=== PATIENT | female | born 1995 | race Two or more races ===

== ENCOUNTER → 2021-11-03 09:12 | Outpatient (REF) | payer BC, SELFPAY ==
--- NOTE | 2021-11-03 09:19 | CA_ITS ---
Transthoracic Echocardiogram Amended Patient (Last, First, Middle): Ellen Haq, Gender: Female Date of : 1995 Age: 26 Procedure Date: 11/03/2021 Procedure Type: Transthoracic Echocardiogram Location: OP Height: 157.48 cm Weight: 59.88 kg BSA: 1.60 m2 Heart Rate: bpm BP: 118 / 60 mmHg Multi Share Program Coordinator: JODI Referring MD: Esther Walker NP Net Technical Architect: Meir Vera MD Symptoms: R55 SYNCOPE COLLAPSE Study Quality: Excellent ECG Rhythm: Sinus Conclusions: - Normal study Findings Left Ventricle Normal left ventricular size, thickness, and systolic function. The visually estimated ejection fraction is between 60-65%. Diastolic function is normal for age. Right Ventricle Normal right ventricular cavity size and systolic function. Atria Both atria are normal in size. There is no evidence of interatrial shunt. Aortic Valve Normal aortic valve structure and function. There is no aortic valve stenosis. There is no aortic valve regurgitation. Mitral Valve Normal mitral valve structure and function. There is trace mitral valve regurgitation. There is no mitral valve stenosis. Pulmonic Valve The pulmonic valve is likely normal. There is trace pulmonic valve regurgitation. Tricuspid Valve Normal tricuspid valve structure. There is no tricuspid valve regurgitation. Tricuspid regurgitation envelope is inadequate for calculation of right ventricular systolic pressure. Great Vessels All visible segments of the aorta are normal in size. The pulmonary artery was not well visualized. Venous The inferior vena cava is normal in size and collapses greater than 50% with inspiration. Pericardium/Pleural There is no evidence of pericardial effusion. Prior Study Comparison No prior study available for comparison. Measurements 2D Linear Measurements IVSd: 0.78 0.6-0.9/0.6-1.0 cm LVIDd: 4.76 3.9-5.3/4.2-5.9 cm LVIDd Index: 2.98 2.4-3.2/2.2-3.1 cm/m2 LVIDs: 3.14 2.0-3.6 cm LVPWd: 0.80 0.7-1.1 cm Ao Root: 2.80 2.1-3.5 cm LA Diam: 2.80 2.7-3.8/3.0-4.0 cm LAIDs Index: 1.75 1.5-2.3 cm/m2 LV Mass: 152.62 67-162/88-224 g LV Mass Index: 95.39 43-95/49-115 g/m2 LVOT Diam: 2.20 3.0+(-)1.3 cm 2D Volumes LA Vol: 16.90 2D Systolic Function EF 4C: 59.30 >55% EF 2C: 52.40 >55% Mitral Valve MV Pk E: 0.75 MV PK A: 0.58 MV Decel Time: 135.00 E/A: 1.30 E'Lateral: 16.30 E'Medial: 9.90 E/E' Med: 7.60 E/E' Lat: 4.60 PHT: 40.00 MVA PHT: 5.50 Decel Mcculloch: 5.58 Aortic Valve AoV Pk Dustin: 1.23 AoV Mn Dustin: 0.84 AoV VTI: 0.27 AoV Pk Grad: 6.00 Aov Mn Grad: 3.00 EARL Cont.VTI: 2.70 LVOT LVOT Pk Dustin: 0.94 LVOT Mn Dustin: 0.64 LVOT VTI: 0.19 LVOT Pk Grad: 4.00 LVOT Mn Grad: 2.00 LVOT Diam: 2.20 LVOT Area: 3.80 Diastolic Function MV Pk E: 0.75 MV Pk A: 0.58 E/A: 1.30 E'Medial: 9.90 E/E' Med: 7.60 E' Laterial: 16.30 E/E' Lat: 4.60 Right Ventricle TAPSE (mm): 24.00 TVS' Dustin: 13.00 Tricuspid Valve TR Pk Dustin: 1.83 TR Pk Grad: 13.00 Great Vessels Aorta Ao Root-2D: 2.80 2.0-3.7 cm Ao Asc: 2.70 2.1-3.4 cm Pulmonary Valve PV Pk Dustin: 1.03 Peak PV Grad: 4.00 Updated in Other Vendor System with Status of Final Meir Vera MD electronically signed on 11/05/2021 8:40:43 AM with status of Final
== END ==
LOC: HO.CARD 09:12
PROVIDERS: Visit Provider Nurse Practitioner Family
DX: R55 Syncope and collapse (principal)
CPT/HCPCS: 93306

== ENCOUNTER 2024-01-01 07:24 | Outpatient (AMB) | payer OTHER, SELFPAY ==
[2024-01-01 07:34] VITALS: BP 112/70; PULSE 80; O2SAT 99; BMI 23.6
--- NOTE | 2024-01-01 07:34 | A.OFFPC_ITS ---
Vital Signs 01/01/24 07:34 Height 5 ft 2 in Weight 129 lb BMI 23.6 BP 112/70 Blood Pressure Location Lt brachial Position Sitting Pulse 80 Pulse Source Pulse Oximeter Pulse Oximetry (%) 99 Oxygen Delivery Method Room Air Intake Visit Reasons: Annual physical- NEEDS PHQ9 Labor Supervisor Required: No Accompanied by: Self / Same As Patient Allergies ciprofloxacin [From Cipro] Allergy (Severe, Verified 01/01/24 07:55) Joint Pain Sulfa (Sulfonamide Antibiotics) Allergy (Severe, Verified 01/01/24 07:55) Hives lorazepam [From Ativan] Adverse Reaction (Severe, Verified 01/01/24 07:55) Uncomfortable Medication List - Last Reconciled 01/01/24 by Brooklyn Milner MD No Known Home Meds Tobacco use date assessed: 01/01/24 Dental Screening Dental Screen Date: 01/01/24 Did you have a dental visit in the last 12 months?: No Did you have a dental problem in the last 6 months where you did not have access to dental care?: No Was dental information given to patient?: No HPI HPI Comments History of Present Illness Details 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 She also has goiter and thyroid function test will be order as well as ultrasound of the thyroid. She will be referred to rheumatology due to her Dai-Danlos. She wants her hormones to get checked due to PCOS and I will refer her to Endocrinology for that matter. She has a cervical lymphadenopathy in the right upper side that has been present for 2 years and saw ENT confirming that she has a swollen lymph node but she is very afraid that she has cancer. I reassured her but still not enough therefore I will send her to Hematology-Oncology and order labs. Will be referred to physical therapy for her shoulder. She does have full active range of motion. [facility] Medical History (Updated 01/01/24 @ 08:22 by Brooklyn Milner MD) Dai-Danlos syndrome Surgical History History of adenoidectomy [place] teeth extracted History of appendectomy Family History Mother Dai-Danlos syndrome Mental health disorder Father No problems noted. Brother No problems noted. 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 1. Little interest or pleasure in doing things: not at all 2. Feeling down, depressed, or hopeless: not at all 3. Trouble falling or staying asleep, or sleeping too much: not at all 4. Feeling tired or having little energy: not at all 5. Poor appetite or overeating: not at all 6. Feeling bad about yourself - or that you are a failure or have let yourself or your family down: not at all 7. Trouble concentrating on things, such as reading the newspaper or watching television: not at all 8. Moving or speaking so slowly that other people could have noticed. Or the opposite - being so fidgety or restless that you have been moving around a lot more than usual: not at all 9. Thoughts that you would be better off or of hurting yourself in some way: not at all Total score: 0 Depression Screening Interpretation: Negative Depression Screening Done: Yes 25022 - PHQ-9 Billing: Yes Source: Developed by Drs. Josef Poole, Rere Gonzalez, Frankie Mazariegos and colleagues, with an educational palomo from [employer]. Thrive Questionnaire Date Thrive assessed: 01/01/24 I am a: Patient What is your living situation today?: I have a steady place to live Within the past 12 months, did the food you bought not last and you didn't have the money to get more?: Never true Within the past 12 months, did you worry whether your food would run out before you got money to buy more?: Never true Do you have trouble paying for medicines?: No Do you have trouble getting transportation to medical appointments?: No Do you have trouble paying your heating and electricity bill?: No Do you have trouble taking care of your child, family member or friend?: No Do you have trouble with day-to-day activities such as bathing, preparing meals, shopping, managing finances, etc.?: No Are you currently unemployed and looking for a job?: No Are you interested in more education?: No Currently or been in a relationship where the following occur: No concerns reported THRIVE Score: 0 AUDIT C Alcohol Use Questionnaire (AUDIT-C) 1. How often do you have a drink containing alcohol?: Never 3. How often do you have six or more drinks on one occasion?: Never Total Score: 0 Score Reviewed/Action Taken: No DILSHAD-7 AMB Questionnaire DILSHAD-7 Date DILSHAD - 7 assessed: 01/01/24 Feeling nervous, anxious, or on edge: 0 = Not at all Not being able to stop or control worryin = Not at all Worrying too much about different things: 0 = Not at all Trouble relaxin = Not at all Being so restless that it is hard to sit still: 0 = Not at all Becoming easily annoyed or irritable: 0 = Not at all Feeling afraid as if something awful might happen: 0 = Not at all Total DILSHAD-7 score (0-4 normal; 5-9 mild; 10-14 moderate; 15-21 severe): 0 Source: Developed by Drs. Josef Poole, Rere Gonzalez, Frankie Mazariegos and colleagues, with an educational palomo from [employer]. DILSHAD-7 Assessment Billing DILSHAD-7 Assessment Tool: DILSHAD-7 Assessment 04029 Review of Systems Const All systems reviewed & are unremarkable except as noted in HPI and below Resp Denies cough GI Denies abdominal pain, Denies change in bowel habits, Denies excessive flatus, Denies nausea and Denies vomiting Musc Reports arthralgias Physical exam (Primary Care) Vital Signs: Last Vital Signs Pulse 80 01/01/24 07:34 BP 112/70 01/01/24 07:34 Pulse Ox 99 01/01/24 07:34 Oxygen Delivery Method Room Air 01/01/24 07:34 BMI result Body Mass Index 23.6 Tobacco/Smoking Status: Tobacco use Status Tobacco use date assessed 01/01/24 01/01/24 07:47 Patient Tobacco Use Status Never used Tobacco 01/01/24 07:47 Tobacco use type Cigarette 01/01/24 07:47 e-Cigarette/Vaping Use Never Used 01/01/24 07:47 PHQ-9: PHQ-9 Score PHQ-9: Total score 0 01/01/24 07:47 Depression Screening Interpretation: Negative Thrive Assessment: Date of Thrive Assessment Date Thrive assessed 01/01/24 01/01/24 07:47 Currently or been in a relationship where the following occur: No concerns reported Neck Thyroid: diffusely enlarged Resp Effort & Inspection: normal respiratory effort Auscultation: clear to auscultation bilaterally Cardio Jugular venous distension: no JVD Rate: regular rate Rhythm: regular rhythm Heart sounds: S1 normal heart sound present and S2 normal heart sound present Extrem General: Yes full ROM Assessment and Plan Assessment & Plan (1) PCOS (polycystic ovarian syndrome): Code(s): E28.2 - Polycystic ovarian syndrome Plan: Referred to Endocrinology. (2) Dai-Danlos syndrome: Code(s): Q79.60 - Dai-Danlos syndrome, unspecified Plan: Referred to rheumatology. (3) Cervical lymphadenopathy: Code(s): R59.0 - Localized enlarged lymph nodes Plan: Referred to Hematology-Oncology. (4) Right shoulder pain: Code(s): M25.511 - Pain in right shoulder Qualifiers: Chronicity: chronic Qualified Code(s): M25.511 - Pain in right shoulder; G89.29 - Other chronic pain Plan: Referred to physical therapy. (5) Goiter: Code(s): E04.9 - Nontoxic goiter, unspecified Plan: Ultrasound of the thyroid ordered. Orders: Orders US thyroid Today E04.9 - Nontoxic goiter, unspecified Complete Blood Count Auto Diff Today R59.0 - Localized enlarged lymph nodes Thyroid Stimulating Hormone Today E04.9 - Nontoxic goiter, unspecified Free T4 (Free Thyroxine) Today E04.9 - Nontoxic goiter, unspecified Thyroid Peroxidase Antibodies Today E04.9 - Nontoxic goiter, unspecified Thyroglobulin Antibodies Today E04.9 - Nontoxic goiter, unspecified PT Evaluation and Treatment Today M25.511 - Pain in right shoulder Comprehensive Met. Panel Today R59.0 - Localized enlarged lymph nodes Referrals Hematology & Oncology Referral R59.0 - Localized enlarged lymph nodes Endocrinology Referral E28.2 - Polycystic ovarian syndrome Rheumatology Referral Q79.60 - Dai-Danlos syndrome, unspecified Coding Level of Care Code New Pt Level 4 (02245) Complex EM visit Add On G2211 Diagnoses PCOS (polycystic ovarian syndrome) E28.2 Dai-Danlos syndrome Q79.60 Cervical lymphadenopathy R59.0 Chronic right shoulder pain M25.511; G89.29 Chronicity: chronic Goiter E04.9 Additional Codes DILSHAD-7 Assessment Billing - DILSHAD-7 Assessment Tool: DILSHAD-7 Assessment 39597 ([id number]) Time Spent (min) 20
== END 2024-01-01 08:15 | disposition home or self-care (01) ==
PROVIDERS: PCP Nurse Practitioner Family; Visit Provider Internal Medicine
DX: E28.2 Polycystic ovarian syndrome (principal); Q79.60 Ehlers-Danlos syndrome, unspecified; R59.0 Localized enlarged lymph nodes; M25.511 Pain in right shoulder; G89.29 Other chronic pain; E04.9 Nontoxic goiter, unspecified
CPT/HCPCS: 99204; G2211

== ENCOUNTER 2024-01-08 11:18 | Outpatient (REF) | payer OTHER, SELFPAY ==
--- NOTE | ~2024-01-08 | US_ITS ---
EXAMINATION: US THYROID CLINICAL INFORMATION: Nontoxic goiter, unspecified. COMPARISON: None available. TECHNIQUE: Linear transducer grayscale and color Doppler examination with attention to the region of the thyroid. FINDINGS: SIZE: Measurements of the thyroid lobes and nodules are given in sagittal, anteroposterior and transverse dimensions respectively. Right Thyroid Lobe: 4.7 x 1.7 x 2.1 cm, volume 8.8 mL. Parenchyma: The gland echotexture is homogeneous. Thyroid vascularity is normal. Left Thyroid Lobe: 4.5 x 1.4 x 1.7 cm, volume 5.6 mL. Parenchyma: The gland echotexture is homogeneous. Thyroid vascularity is normal. Isthmus: 0.56 cm in maximum AP dimension. Estimated total number of nodules greater than or equal to 1 cm: 0. [employer] M[employer] Trim nodules are described as follows: 1. Location: Right inferior. Size: 0.5 x 0.3 x 0.3 cm, volume 0.02 mL. Nodule characteristics: Composition: Cystic(0). ACR TI-RADS total points: 0. ACR TI-RADS category: 1. NODES: Right cervical nodes with echogenic elva and borderline cortical thickening measure 2.0 x 0.3 x 1.4 cm and 1.7 x 1.7 x 1.3 cm. US/US thyroid IMPRESSION: 1. A 0.5 cm right TR1 thyroid nodule. 2. Right cervical nodes with echogenic elva and borderline cortical thickening measure 2.0 x 0.3 x 1.4 cm and 1.7 x 1.7 x 1.3 cm. ACR TI-RADS RECOMMENDATION REFERENCE: Ultrasound-guided fine-needle aspiration, followup ultrasound, no further follow up. * TR1 (0 point) and TR2 (2 points): No FNA or follow up. * TR3 (3 points): FNA if more than or equal to 2.5 cm in maximum dimension, followup ultrasound in 1, 3 and 5 years if 1.5 to 2.4 cm in maximum dimension. * TR4 (4-6 points): FNA if more than or equal to 1.5 cm in maximum dimension, followup ultrasound in 1, 2, 3 and 5 years if 1 to 1.4 cm in maximum dimension. * TR5 (more than or equal to 7 points): FNA if more than or equal to 1 cm in maximum dimension, followup ultrasound every year for 5 years if 0.5 to 0.9 cm in maximum dimension. * TR3, TR4 or TR5 nodules that are below the size threshold for followup receive no follow up.
[2024-01-08 12:23] LABS: MANUAL DIFF FLAG NO
[2024-01-08 12:43] LABS: Basophils Absolute Auto 0.1 X10*3/uL (0.0-0.2); Basophils Percent Auto 0.8 % (0-2); Eosinophils Absolute Auto 0.3 X10*3/uL (0.0-0.4); Eosinophils Percent Auto 4.9 % (0-4); Hematocrit 39.2 % (37.0-47.0); Hemoglobin 13.1 g/dl (12.0-16.0); Imm Gran Abs Auto 0.01 X10*3/uL (0.00-0.03); Imm Gran Pct Auto 0.2 % (0.0-0.4); Lymphocytes Absolute Auto 2.2 X10*3/uL (1.2-4.9); Lymphocytes Percent Auto 35.4 % (20-40); Mean Corpuscular HGB Conc 33.4 g/dl (31.0-35.0); Mean Corpuscular Volume 89.7 fL (80.0-98.0); Mean Platelet Volume 10.5 fL (9.4-12.3); Monocytes Absolute Auto 0.4 X10*3/uL (0.1-1.2); Neutrophils Absolute Auto 3.3 x10*3/uL (2.0-8.3); Neutrophils Percent Auto 51.7 % (45-73); Platelet Count 230 X10*3/uL (160-400); Red Blood Count 4.37 X10*6/uL (4.20-5.50); Red Cell Distribution Width 12.6 % (11.0-16.0); White Blood Count 6.3 X10*3/uL (4.8-10.8)
[2024-01-08 14:01] LABS: Alanine Aminotransferase 9 U/L (0-31); Albumin Level 4.5 g/dL (3.5-5.0); Alkaline Phosphatase 81 U/L (39-117); Anion Gap 11 (12-20); Aspartate Amino Transferase 21 U/L (5-31); Bilirubin Total 0.2 mg/dL (0.0-1.0); Blood Urea Nitrogen 7 mg/dL (9-16); Calcium 9.5 mg/dL (8.4-10.2); Carbon Dioxide 24 mmol/L (22-29); Chloride 110 mmol/L (96-108); Estimated Glomerular Filt Rate > 60; Glucose Random 85 mg/dL (60-115); Potassium 4.6 mmol/L (3.3-5.1); Sodium 140 mmol/L (135-145); Total Protein 7.6 g/dL (6.5-8.0)
[2024-01-08 14:03] LABS: Free T4 (Free Thyroxine) 1.02 ng/dL (0.71-1.85); Thyroid Stimulating Hormone 1.22 uIU/mL (0.32-4.0)
[2024-01-09 10:44] LABS: Thyroglobulin Antibodies <1 IU/mL (< or = 1); Thyroid Peroxidase Antibodies 1 IU/mL (<9)
== END 2024-01-08 11:19 | disposition home or self-care (01) ==
LOC: HO.US 11:18
PROVIDERS: PCP Internal Medicine; Visit Provider Internal Medicine
DX: E04.9 Nontoxic goiter, unspecified (principal); R59.0 Localized enlarged lymph nodes
CPT/HCPCS: 36415; 76536; 80053; 84439; 84443; 85025; 86376; 86800

== ENCOUNTER 2024-02-04 12:59 | Outpatient (AMB) | payer OTHER, SELFPAY ==
[2024-02-04 13:00] VITALS: BP 98/68; PULSE 79; O2SAT 98; BMI 25.2
--- NOTE | 2024-02-04 13:00 | A.OFFPC_ITS ---
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 Required: No Accompanied by: Self / Same As Patient Allergies ciprofloxacin [From Cipro] Allergy (Severe, Verified 02/04/24 13:22) Joint Pain Sulfa (Sulfonamide Antibiotics) Allergy (Severe, Verified 02/04/24 13:22) Hives lorazepam [From Ativan] Adverse Reaction (Severe, Verified 02/04/24 13:22) Uncomfortable Medication List - Last Reconciled 02/04/24 by Brooklyn Milner MD fluticasone propionate 50 mcg/actuation 1 spray intranasal DAILY Tobacco use date assessed: 01/01/24 Dental Screening Dental Screen Date: 01/01/24 HPI HPI Comments History of Present Illness Details This is a 28-year-old female that comes today complaining of a headache that has been persistent for about 3 weeks. She even went to the emergency room for it. The headache started pain associated with nausea and vomiting but that resolved. No eye pain or photosensitivity. No neurological deficit. No unilateral weakness associated with it. Pressure like in quality. She also has cervical lymphadenopathy that is seen in the thyroid ultrasound and I did order antibiotics for her to try and repeat ultrasound in 3 months to see if it is still present. No fever or night sweats. She also complains pain in her right axillary area with no nipple discharge or retraction. No axillary or breast mass palpated. This has been present for few weeks. [facility] Medical History (Updated 02/04/24 @ 13:34 by Brooklyn Milner MD) Dai-Danlos syndrome Surgical History History of adenoidectomy [place] teeth extracted History of appendectomy Family History Mother Dai-Danlos syndrome Mental health disorder Father No problems noted. Brother No problems noted. 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 Current occupational exposures/hazards: No Cognitive needs: No Hearing needs: No Vision needs: Yes Questionnaire Thrive Questionnaire Date Thrive assessed: 01/01/24 I am a: Patient What is your living situation today?: I have a steady place to live Within the past 12 months, did the food you bought not last and you didn't have the money to get more?: Never true Within the past 12 months, did you worry whether your food would run out before you got money to buy more?: Never true Do you have trouble paying for medicines?: No Do you have trouble getting transportation to medical appointments?: No Do you have trouble paying your heating and electricity bill?: No Do you have trouble taking care of your child, family member or friend?: No Do you have trouble with day-to-day activities such as bathing, preparing meals, shopping, managing finances, etc.?: No Are you currently unemployed and looking for a job?: No Are you interested in more education?: No Currently or been in a relationship where the following occur: No concerns reported THRIVE Score: 0 AUDIT C Alcohol Use Questionnaire (AUDIT-C) 1. How often do you have a drink containing alcohol?: Never 3. How often do you have six or more drinks on one occasion?: Never Total Score: 0 Score Reviewed/Action Taken: No DILSHAD-7 AMB Questionnaire DILSHAD-7 Date DILSHAD - 7 assessed: 01/01/24 Source: Developed by Drs. Josef Poole, Rere Gonzalez, Frankie Mazariegos and colleagues, with an educational palomo from [employer]. Review of Systems Const All systems reviewed & are unremarkable except as noted in HPI and below Reports headache(s) ENT Reports headache(s) Card Denies chest pain at rest, Denies chest pain with activity, Denies edema, Denies irregular heart rhythm, Denies claudication, Denies dyspnea, Denies dyspnea on exertion, Denies orthopnea, Denies paroxysmal nocturnal dyspnea and Denies slow heart rate Resp Denies cough, Denies dyspnea and Denies dyspnea on exertion GI Denies abdominal pain, Denies change in bowel habits, Denies excessive flatus, Denies nausea and Denies vomiting Denies urinary incontinence, Denies urinary hesitancy and Denies urinary urgency Musc Denies atrophy, Denies deformity and Denies limited range of motion Neuro Reports headache(s) Physical exam (Primary Care) Vital Signs: Last Vital Signs Pulse 79 02/04/24 13:00 BP 98/68 02/04/24 13:00 Pulse Ox 98 02/04/24 13:00 Oxygen Delivery Method Room Air 02/04/24 13:00 BMI result Body Mass Index 25.2 Tobacco/Smoking Status: Tobacco use Status Tobacco use date assessed 01/01/24 02/04/24 13:01 Patient Tobacco Use Status Never used Tobacco 02/04/24 13:01 Tobacco use type Cigarette 02/04/24 13:01 e-Cigarette/Vaping Use Never Used 02/04/24 13:01 Thrive Assessment: Date of Thrive Assessment Date Thrive assessed 01/01/24 02/04/24 13:01 Currently or been in a relationship where the following occur: No concerns reported Const General: cooperative Neck Neck: Yes lymphadenopathy Chest Breast/axilla inspection: normal inspection of the axillae Breast/axilla palpation: abnormal palpation of the axilla (right axillary pain) Resp Effort & Inspection: normal respiratory effort Auscultation: clear to auscultation bilaterally Cardio Jugular venous distension: no JVD Rate: regular rate Rhythm: regular rhythm Heart sounds: S1 normal heart sound present and S2 normal heart sound present Extrem General: Yes full ROM Assessment and Plan Assessment & Plan (1) Pain in right axilla: Code(s): M79.621 - Pain in right upper arm Plan: Ultrasound and mammogram ordered. (2) Persistent headaches: Code(s): R51.9 - Headache, unspecified Plan: MRI of the brain ordered. Start sumatriptan as needed. (3) Cervical lymphadenopathy: Code(s): R59.0 - Localized enlarged lymph nodes Plan: Start antibiotic. Repeat ultrasound in 3 months. Orders: Orders MR head/brain wo con Today R51.9 - Headache, unspecified US breast RT complete Today M79.621 - Pain in right upper arm MM diagnostic mammo BI Today M79.621 - Pain in right upper arm Coding Level of Care Code Est Pt Level 3 (12888) Complex EM visit Add On G2211 Diagnoses Pain in right axilla M79.621 Persistent headaches R51.9 Cervical lymphadenopathy R59.0 Time Spent (min) 19
== END 2024-02-04 13:41 | disposition home or self-care (01) ==
PROVIDERS: PCP Internal Medicine; Visit Provider Internal Medicine
DX: M79.621 Pain in right upper arm (principal); R51.9 Headache, unspecified; R59.0 Localized enlarged lymph nodes
CPT/HCPCS: 99213; G2211

== ENCOUNTER 2024-02-05 10:55 | Outpatient (AMB) | payer OTHER, SELFPAY ==
[2024-02-05 11:10] VITALS: BP 110/66; PULSE 87; BMI 25.5
--- NOTE | 2024-02-05 11:10 | MHC.OFFVIS ---
Vital Signs 02/05/24 11:10 Height 5 ft 2 in Weight 139 lb 5.314 oz BMI 25.5 BP 110/66 Blood Pressure Location Lt brachial Position Sitting Pulse 87 Pulse Source Pulse Oximeter Intake Visit Reasons: PCOS-lvm Intake Note: New patient present today for PCOS. 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 She also expresses concern about her thyroid nodule. 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 Was previoulsy seeing an endo at [place] Dr. Michael, last seen 2018. She reports her testosterone levels were noted to be very elevated. On off OCP since 14 till age 25, stopped it because she was getting continuous bleeding for 7 weeks in the end when she was on control pills. Was offered ablation, IUD so didnt go for it. Has had numtiple US including transvaginal ones , no cystic overies seen Was on metformin 2019 to 2020, and spironolactone 12.5 mg she thinks didnt help with hirsutism and metformin was giving GI trouble so she stopped. She was still on OCP at this time. 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 Sexullay active with a cis-female, not on any contraceptives currently No history of pregnancies. Does get acne on the face and scalp, interesteded in seeing dermatology. She has not tried any treatments through her primary care physician. No hair loss. No history of HTN or HLD. But thinks she had impaired glucose readings, wasnt diagnosed with prediabetes. She has family history of mother: PCOS, enhler danlos, stroke, HTN Maternal grandmother : skin cancer, ovarian cancer, cervical cancer Maternal aunt(mother s cousin) breast cancer Medications:Currently none for PCOS Diet: mostly eats at home, no soda, but has smoothies and juices a lot, not a lot of fast food Exercise: walks 3 times a week for a mile or mile and half Weight Trend: fluctuating up and down between 15 lbs , currently she is on the higher end Medical therapies: OCP, spironolactone, metformin, incretin therapy Cosmetic therapies: Laser hair removal one treatment, shaving, threading, plucking Thyroid nodule Patient describes she has noted an enlarged thyroid for many years. She also has a lymph node for the past 2 years on the right side of her neck, she says this developed after her wisdom tooth surgery. Denies any symptoms of hypothyroidism or hyperthyroidism except fatigue. She also seems to have increased anxiety. No compressive symptoms. No family history of thyroid cancer but she does have family history of thyroid disease. Sister has Chrisitne's. Ultrasound January 2024 showed subcentimeter right-sided thyroid nodule cystic in appearance, TR 1. Normal thyroid function tests from January 2024. 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 Pulmonary: No SOB GI: Does report intermittent stomach problems : no burning micturition, dysuria or increase in urinary frequency Neurologic: Does have weakness in extremities from Dai-Danlos Physical exam General: sitting comfortably in no acute distress HEENT: normocephalic/atraumatic, noted to have hair growth on the chin Neck: supple, palpable enlarged thyroid as well as a right sided lymph node in the cervical region , no dorsocervical or supraclavicular fat pads Cardiac: normal heart sounds Pulm: normal breath sounds B/L, no added breath sounds Abd: not distended, no tenderness Extremities: no edema, no signs of myxedema Neuro: AAO x3, Speech: normal, no facial droop, moving all 4 extremities Skin: no rash PFSH Medical History (Updated 02/05/24 @ 12:47 by Sharon Grimes MD) Thyroid nodule Acne Dai-Danlos syndrome Surgical History History of adenoidectomy [place] teeth extracted History of appendectomy Family History Mother Dai-Danlos syndrome Mental health disorder Father No problems noted. Brother No problems noted. 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 Over all she has an enlarged thyroid. However this is homogeneous in appearance. CLINICAL INFORMATION: Nontoxic goiter, unspecified. COMPARISON: None available. TECHNIQUE: Linear transducer grayscale and color Doppler examination with attention to the region of the thyroid. FINDINGS: SIZE: Measurements of the thyroid lobes and nodules are given in sagittal, anteroposterior and transverse dimensions respectively. Right Thyroid Lobe: 4.7 x 1.7 x 2.1 cm, volume 8.8 mL. Parenchyma: The gland echotexture is homogeneous. Thyroid vascularity is normal. Left Thyroid Lobe: 4.5 x 1.4 x 1.7 cm, volume 5.6 mL. Parenchyma: The gland echotexture is homogeneous. Thyroid vascularity is normal. Isthmus: 0.56 cm in maximum AP dimension. Estimated total number of nodules greater than or equal to 1 cm: 0. Publicity Director nodules are described as follows: 1. Location: Right inferior. Size: 0.5 x 0.3 x 0.3 cm, volume 0.02 mL. Nodule characteristics: Composition: Cystic(0). ACR TI-RADS total points: 0. ACR TI-RADS category: 1. NODES: Right cervical nodes with echogenic elva and borderline cortical thickening measure 2.0 x 0.3 x 1.4 cm and 1.7 x 1.7 x 1.3 cm. US/US thyroid IMPRESSION: 1. A 0.5 cm right TR1 thyroid nodule. 2. Right cervical nodes with echogenic elva and borderline cortical thickening measure 2.0 x 0.3 x 1.4 cm and 1.7 x 1.7 x 1.3 cm. Assessment & Plan Assessment & Plan (1) PCOS (polycystic ovarian syndrome): Code(s): E28.2 - Polycystic ovarian syndrome Category: Medical Plan: Patient with diagnosis of polycystic ovarian syndrome, diagnosed on the basis of irregular menstruation, symptoms of hyperandrogenism and elevated testosterone levels per patient, who was previously on oral contraceptive pills for at least 10 years up until the age of 25, and has previously trialed metformin and spironolactone for hirsutism and also suffers from acne. Her menstruation is now regular, however she is still bothered by the hirsutism and acne. She is sexually active with cyst female, hence no chance of . I discussed with her that this is a good time to test her hormone levels given that she is off any treatments, so we will get an extended panel with reproductive hormones as well as rules out nonclassic CAH, adrenal tumors, ovarian tumors etc.. If her blood work is only consistent with PCOS, we reviewed the following,. I reviewed with the patient the implications of polycystic ovarian syndrome in terms of 1) reproductive health (increased risk of infertity, miscarriage), 2) metabolic issues (type 2 diabetes, hypertension, dyslipidemia, cardiovascular disease) and 3) hyperandrogenism (acne, hirsuitism, male pattern hair loss). We reviewed that weight loss in overweight woman can help improve these morbidities, but often woman with PCOS do need further assistance with fertility using metformin plus clomiphene or letrazole. She is not interested in fertility. We discussed importance of 150 minutes of aerobic exercise and a week as well as resistance training on 1-2 days of the week. We discussed importance of avoiding refined sugars, fatty foods. Also discussed apps such as my fitness pal and lose it to maintain calorie deficit as well as discussed portion control. She is not interested in giving another trial of spironolactone for hirsutism/acne. I I will refer her to dermatology for treatment of acne. I discussed importance of having a period at least every 3 months to prevent endometrial hyperplasia with risk of endometrial cancer. At this time her menses are regular so no need of menses inducing agents such as estrogen or progesterone. Plan: -ordered FSH, LH, estradiol, testosterone, DHEA-S, 17 hydroxy progesterone and androstenedione levels -we will also check lipid panel and A1c -lifestyle modification as discussed above -follow up in 4 weeks to discuss results (2) Thyroid nodule: Code(s): E04.1 - Nontoxic single thyroid nodule Category: Medical Plan: Patient with no personal history of head or neck radiation, with no family history of thyroid cancer, who has a right-sided subcentimeter cystic nodule category TR 1. I reviewed the images of the ultrasound myself. I explained that it is common to have thyroid nodules. About 95% of the time these nodules are benign. However if the nodule is > 1 cm in size or suspicious on ultrasound then a fine need aspiration biopsy is recommended. I discussed with her that at this time her nodule does not need any further intervention or follow up. Patient feels reassured. She does have an enlarged thyroid overall, however she has negative antibodies and had thyroid function testing is unremarkable. She also has right-sided cervical lymph nodes which are quite sizable up to 2 cm in size, that have persisted over the last 2 years per patient, would recommend seeing Ear Nose and Throat as she already has an appointment pending, for further evaluation of these. If this continues to persist, she might need a core biopsy to evaluate for lymphoma. Plan: -no follow up needed for the thyroid nodule -would recommend further evaluation of the right-sided cervical lymph nodes with follow up with ENT/core biopsy Plan I spent 60 minutes in reviewing the record, seeing the patient and documenting in the medical record. Orders: Orders 17 Hydroxyprogesterone Today E28.2 - Polycystic ovarian syndrome Androstenedione Today E28.2 - Polycystic ovarian syndrome Follicle Stimulating Hormone Today E28.2 - Polycystic ovarian syndrome Testosterone, Free/Total Today E28.2 - Polycystic ovarian syndrome Hemoglobin A1c Today E28.2 - Polycystic ovarian syndrome DHEA Sulfate Today E28.2 - Polycystic ovarian syndrome Lutenizing Hormone Today E28.2 - Polycystic ovarian syndrome Estradiol Ultra Sensitive Today E28.2 - Polycystic ovarian syndrome Basic Metabolic Panel Today E28.2 - Polycystic ovarian syndrome Lipid Panel Today E28.2 - Polycystic ovarian syndrome Referrals Dermatology Referral L70.9 - Acne, unspecified Coding Level of Care Code New Pt Level 5 (76879) Diagnoses PCOS (polycystic ovarian syndrome) E28.2 Thyroid nodule E04.1 Time Spent (min) 60
== END 2024-02-05 12:19 | disposition home or self-care (01) ==
PROVIDERS: PCP Internal Medicine; Visit Provider Student in an Organized Health Care Education/Training Program
DX: E28.2 Polycystic ovarian syndrome (principal); E04.1 Nontoxic single thyroid nodule
CPT/HCPCS: 99205

== ENCOUNTER → 2024-02-05 10:55 | Outpatient (BNVA) | payer OTHER, SELFPAY | PROVIDERS: PCP Internal Medicine; Visit Provider Student in an Organized Health Care Education/Training Program | DX: E28.2 Polycystic ovarian syndrome (principal); E04.1 Nontoxic single thyroid nodule | CPT/HCPCS: 99202 ==

== ENCOUNTER 2024-02-05 12:30 | Outpatient (REF) | payer OTHER, SELFPAY ==
[2024-02-05 13:28] LABS: Anion Gap 10 (12-20); Blood Urea Nitrogen 9 mg/dL (9-16); Calcium 9.4 mg/dL (8.4-10.2); Carbon Dioxide 27 mmol/L (22-29); Chloride 108 mmol/L (96-108); Cholesterol 185 mg/dL (<200); Estimated Glomerular Filt Rate > 60; Glucose Random 90 mg/dL (60-115); HDL Cholesterol 66 mg/dL (>40); LDL Cholesterol Calculated 104 mg/dL (<100); Potassium 3.8 mmol/L (3.3-5.1); Sodium 141 mmol/L (135-145); Triglycerides 77 mg/dL (<150)
[2024-02-05 13:31] LABS: Estimated Average Glucose 100 mg/dL; Hemoglobin A1c % 5.1 % (<6.0)
[2024-02-06 08:48] LABS: DHEA Sulfate 162 mcg/dL (14-349)
[2024-02-06 09:08] LABS: Follicle Stimulating Hormone 6.7 mIU/mL; Lutenizing Hormone 6.2 mIU/mL
[2024-02-09 17:33] LABS: Testosterone, Free 2.5 pg/mL (0.1-6.4); Testosterone, Total 38 ng/dL (2-45)
[2024-02-13 23:34] LABS: Estradiol Ultra Sensitive 88 pg/mL
[2024-02-14 23:23] LABS: Androstenedione 132 ng/dL
== END 2024-02-05 12:31 | disposition home or self-care (01) ==
LOC: HO.10HDL 12:30
PROVIDERS: Visit Provider Student in an Organized Health Care Education/Training Program
DX: E28.2 Polycystic ovarian syndrome (principal)
CPT/HCPCS: 36415; 80048; 80061; 82157; 82627; 82670; 83001; 83002; 83036; 83498; 84402; 84403

== ENCOUNTER 2024-02-25 12:55 | Outpatient (REF) | payer OTHER, SELFPAY ==
--- NOTE | ~2024-02-25 | US_ITS ---
EXAMINATION: US DIAGNOSTIC ULTRASOUND BREAST, 28-year-old female with palpable right axillary lump. CLINICAL INFORMATION: Palpable right axillary lump.. COMPARISON: None available. TECHNIQUE: Ultrasound of the breast is performed with real-time vilchis scale imaging and color Doppler. FINDINGS: Targeted color Doppler ultrasound thickening in the right axilla in the area of the patient's palpable lump demonstrates normal axillary tissue. There is no focal suspicious finding. There is no solid mass, architectural abnormality, duct ectasia, or edema in the soft tissue planes. Results are discussed with the patient at time of visit. US/US breast RT limited mamm only IMPRESSION: No sonographic abnormality to account for the patient's right axillary palpable lump. Recommend clinical evaluation and follow-up. ASSESSMENT: BI-RADS 1: Negative RECOMMENDATION: 1. Patient should be managed based on the clinical impression. Decision to proceed with further workup or biopsy should be based on clinical grounds and degree of clinical concern. 2. Age-appropriate screening mammography at age 40 recommended. This patient's information was entered into a reminder system with a target due date for their next mammogram. Electronically signed by: Marybeth Leigh DO 02/25/2024 01:48 PM EDT
== END 2024-02-25 12:56 | disposition home or self-care (01) ==
LOC: HO.MAMMO 12:55
PROVIDERS: PCP Internal Medicine; Visit Provider Internal Medicine
DX: N63.11 Unspecified lump in the right breast, upper outer quadrant (principal)
CPT/HCPCS: 76642

== ENCOUNTER → 2024-02-25 13:00 | Outpatient (BNV) | payer OTHER, SELFPAY | PROVIDERS: PCP Internal Medicine; Visit Provider Internal Medicine | DX: N63.31 Unspecified lump in axillary tail of the right breast (principal) | CPT/HCPCS: 76642 ==

== ENCOUNTER 2024-03-04 08:06 | Outpatient (REF) | payer OTHER, SELFPAY ==
--- NOTE | ~2024-03-04 | MR_ITS ---
EXAMINATION: MR BRAIN WITHOUT CONTRAST CLINICAL INFORMATION: Headache COMPARISON: None available. TECHNIQUE: MRI of the brain was obtained using routine sequences without contrast. FINDINGS: No acute intracranial hemorrhage or infarct. No midline shift or hydrocephalus. No acute extra-axial fluid collections. The osseous structures are unremarkable. The pituitary gland, pineal gland and remaining midline structures are unremarkable. No orbital pathology. The paranasal sinuses and mastoid air cells are clear. MR/MR head/brain wo con IMPRESSION: Unremarkable MRI brain. Electronically signed by: Palomo Jose MD 03/31/2024 09:23 AM EDT
== END 2024-03-04 08:07 | disposition home or self-care (01) ==
LOC: HO.MRI 08:06
PROVIDERS: PCP Internal Medicine; Visit Provider Internal Medicine
DX: R51.9 Headache, unspecified (principal)
CPT/HCPCS: 70551

== ENCOUNTER 2024-03-23 13:31 | Outpatient (REF) | payer OTHER, SELFPAY ==
--- NOTE | ~2024-03-23 | US_ITS ---
EXAMINATION: US SOFT TISSUE OF THE NECK CLINICAL INFORMATION: Localized enlarged lymph nodes. COMPARISON: Ultrasound soft tissue head/neck thyroid dated 01/08/2024. TECHNIQUE: Linear transducer grayscale and color Doppler examination of the right neck. FINDINGS: The cutaneous, subcutaneous, muscular and fascial planes are unremarkable. Within the lower right cervical region, a 2.0 x 0.4 x 1.1 cm and 1.1 x 0.4 x 0.5 cm reniform lymph nodes are seen. These show vascular hilum and no focal cortical thickening. No mass or fluid collection is seen. No foreign body is noted. US/US soft tiss head and/or neck IMPRESSION: Lower right cervical lymph nodes are seen, one borderline enlarged. These show normal architectural features. These lymph nodes are nonspecific, and management is recommended on a clinical basis. If of continued clinical concern, consider short-term follow-up ultrasound imaging in 3-6 months to ensure stability/regression. Electronically signed by: Spenser Grimm MD 03/25/2024 06:35 PM EDT
== END 2024-03-23 13:32 | disposition home or self-care (01) ==
LOC: HO.US 13:31
PROVIDERS: PCP Internal Medicine; Visit Provider Physician Assistant Surgical
DX: R59.0 Localized enlarged lymph nodes (principal)
CPT/HCPCS: 76536

== ENCOUNTER 2024-04-02 11:00 | Outpatient (RCR) | payer OTHER, SELFPAY ==
--- NOTE | 2024-02-13 13:21 | MHC.PT.EP ---
[facility] [place] Office [place] Office [place] Office [address] Clarisse Bell [address] [phone] F: [phone] F: [phone] F: [phone] F: [phone] Physical Therapy Plan of Care Date of Evaluation: 02/12/24 Date of Surgery: Diagnosis: RIGHT shoulder pain (MD Dx) RIGHT sided cervical spine pain and RIGHT UE radiculopathy, questionable thoracic outlet syndrome (PT Dx) (RS) Assessment: Patient is a 28 y.o. with a PMH including Ehler Danlos Syndrome who is referred to PT by Dr. Brooklyn Milner MD with Dx of Pain in RIGHT shoulder. PT diagnosis is RIGHT sided cervical spine pain and RIGHT UE radiculopathy, questionable thoracic outlet syndrome, etiology unknown, but began after enlarged chronic lymph nodes R side of neck after wisdom tooth removal. Patient impairments include pain, R radicular UE sxs, limited cervical ROM, weakness with postural imbalances. Patient current functional limitations are prolonged sitting, sleeping Patient will benefit from skilled PT to address aforementioned impairments and functional limitations to meet established goals. Frequency and Duration: The patient will be seen 2x/week for 4 weeks Short Term Goals: 2 weeks Patient demonstrates consistency and independence with HEP to self manage symptoms. 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 Patient presents with increased RIGHT shoulder flexion strength 5/5 to improve sitting posture and tolerance to prolonged sitting. [ End ] Treatment Plan: Modalities to reduce pain, spasms and effusion. Manual therapy to restore motion and function. Therapeutic exercise to improve strength and flexibility. Neuromuscular re-education for posture and balance. Therapeutic activities to return to functional activities of daily living. Electronically signed by: Scottie Cherry, PT, DPT Please sign and return to therapist. Thank you for your referral.
--- NOTE | 2024-04-02 12:46 | MHC.PT.DC ---
[facility] [place] Office [place] Office [place] Office [address] [phone] F: [phone] F: [phone] F: [phone] F: [phone] Physical Therapy Discharge Report Diagnosis: RIGHT shoulder pain (MD Dx) RIGHT sided cervical spine pain and RIGHT UE radiculopathy, questionable thoracic outlet syndrome (PT Dx) (RS) Date of Surgery: Date of Evaluation: 02/12/24 Date of Discharge: 04/02/24 Treatments to Date: 7 Cancellations to Date: No Shows to Date: Discharge Status: Improved Function Independent with HEP Discharge Summary: Ellen continues to have tension along R UT and cervical spinals, decreased with STM. She has improved postural awareness, and increased ROM and strength in her shoulder. She no longer requires cues during exercises and tolerates all ther ex with adequate fatigue. Significant improvement in outcome measure showing subjective improvement as well. Pt agrees to discharge this visit, has independent plan of care. Discharged patient today. Electronically signed by: Scottie Cherry, PT, DPT Please sign and return to therapist. Thank you for your referral.
== END 2024-04-02 12:46 | disposition home or self-care (01) ==
LOC: HO.PT 11:00
PROVIDERS: PCP Internal Medicine; Visit Provider Internal Medicine
DX: M25.511 Pain in right shoulder (principal)
CPT/HCPCS: 97110; 97140; 97161; 97162

== ENCOUNTER 2024-05-04 12:53 | Outpatient (AMB) | payer OTHER, SELFPAY ==
--- NOTE | 2024-05-04 12:55 | A.OFFVIS_ITS ---
Vital Signs 05/04/24 12:57 Height 5 ft 2 in Weight 143 lb 4.807 oz BMI 26.2 BP 98/60 Blood Pressure Location Rt brachial Position Sitting Pulse 97 Pulse Source Pulse Oximeter Intake Visit Reasons: [id number] Intake Note: Patient presents today for a follow-up on polycystic ovarian syndrome: Product/Device Technologist Required: No Accompanied by: Self / Same As Patient Allergies ciprofloxacin [From Cipro] Allergy (Severe, Verified 02/05/24 11:13) Joint Pain Sulfa (Sulfonamide Antibiotics) Allergy (Severe, Verified 02/05/24 11:13) Hives lorazepam [From Ativan] Adverse Reaction (Severe, Verified 02/05/24 11:13) Uncomfortable HPI Comments Details: 28-year-old female coming in today for follow up of PCOS. 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 Polycystic ovarian syndrome Menarche age 9, with dysmenorrhea being very troublesome, would not get menses every 2-3 months, diagnosed with PCOS at age 14 years by a Educational Technician [employer] . Was previoulsy seeing an endo at [place]/ [facility] Dr. Michael, last seen 2018. She reports her testosterone levels were noted to be very elevated. On off OCP since 14 till age 25, stopped it because she was getting continuous bleeding for 7 weeks in the end when she was on control pills. Was offered ablation, IUD so didnt go for it. Has had numtiple US including transvaginal ones , no cystic overies seen Was on metformin 2019 to 2020, and spironolactone 12.5 mg she thinks didnt help with hirsutism and metformin was giving GI trouble so she stopped. She was still on OCP at this time. Now been getting her periods regularly , every 29-30 days, LMP: 18 of January : Flow is dipper and drier in the beginning followed by heavy bleeding for 3-4 days , lasts 3-5 days Dysmenorrhea is better but still has it but she needs to still take ibuprofen, needs it at least for 2 days in the cycle. Sexullay active with a cis-female, not on any contraceptives currently No history of pregnancies. Does get acne on the face and scalp, interesteded in seeing dermatology. She has not tried any treatments through her primary care physician. No hair loss. No history of HTN or HLD. But thinks she had impaired glucose readings, wasnt diagnosed with prediabetes. She has family history of mother: PCOS, enhler danlos, stroke, HTN Maternal grandmother : skin cancer, ovarian cancer, cervical cancer Maternal aunt(mother s cousin) breast cancer Medications:Currently none for PCOS Diet: mostly eats at home, no soda, but has smoothies and juices a lot, not a lot of fast food Exercise: walks 3 times a week for a mile or mile and half Weight Trend: fluctuating up and down between 15 lbs , currently she is on the higher end Medical therapies: none currenlty Cosmetic therapies: Laser hair removal one treatment, shaving, threading, plucking Interval history Labs done 02/05/2024 showed normal estradiol, FSH, LH, total testosterone, free testosterone, androstenedione, DHEA-S, 17 hydroxyprogesterone. A1c and lipids within reasonable range. 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 Pulmonary: No SOB GI: Does report intermittent stomach problems : no burning micturition, dysuria or increase in urinary frequency Neurologic: Does have weakness in extremities from Dai-Danlos Physical exam General: sitting comfortably in no acute distress HEENT: normocephalic/atraumatic, noted to have hair growth on the chin Cardiac: normal heart sounds Pulm: normal breath sounds B/L, no added breath sounds Abd: not distended, no tenderness Extremities: no edema, no signs of myxedema Neuro: AAO x3, Speech: normal, no facial droop, moving all 4 extremities Skin: no rash Laboratory Tests 01/08/24 02/05/24 12:21 12:40 Hemoglobin A1c % 5.1 Triglycerides 77 Cholesterol 185 LDL Cholesterol, Calc 104 H HDL Cholesterol 66 TSH 1.22 Free T4 1.02 Estradiol Ultra LCMSMS 88 FSH 6.7 Luteinizing Hormone 6.2 Total Testosterone 38 Fr Testosterone Dialys 2.5 Androstenedione 132 DHEA Sulfate 162 17-Hydroxyprogesterone 135 PFSH Medical History (Updated 04/11/24 @ 15:42 by Brooklyn Milner MD) Thyroid nodule Acne Dai-Danlos syndrome Surgical History History of adenoidectomy [place] teeth extracted History of appendectomy Family History Mother Dai-Danlos syndrome Mental health disorder Father No problems noted. Brother No problems noted. 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 Current occupational exposures/hazards: No Cognitive needs: No Hearing needs: No Vision needs: Yes Assessment & Plan Assessment & Plan (1) PCOS (polycystic ovarian syndrome): Code(s): E28.2 - Polycystic ovarian syndrome Category: Medical Plan: Patient with diagnosis of polycystic ovarian syndrome, diagnosed on the basis of irregular menstruation, symptoms of hyperandrogenism and elevated testosterone levels per patient, who was previously on oral contraceptive pills for at least 10 years up until the age of 25, and has previously trialed metformin and spironolactone for hirsutism and also suffers from acne. Her menstruation is now regular, however she is still bothered by the hirsutism and acne. She is sexually active with cis female, hence no chance of . Labs done 02/05/2024 showed normal estradiol, FSH, LH, total testosterone, free testosterone, androstenedione, DHEA-S, 17 hydroxyprogesterone. A1c and lipids within reasonable range. I reviewed with the patient the implications of polycystic ovarian syndrome in terms of 1) reproductive health (increased risk of infertity, miscarriage), 2) metabolic issues (type 2 diabetes, hypertension, dyslipidemia, cardiovascular disease) and 3) hyperandrogenism (acne, hirsuitism, male pattern hair loss). We reviewed that weight loss in overweight woman can help improve these morbidities, but often woman with PCOS do need further assistance with fertility using metformin plus clomiphene or letrazole. She is not interested in fertility. We discussed importance of 150 minutes of aerobic exercise and a week as well as resistance training on 1-2 days of the week. We discussed importance of avoiding refined sugars, fatty foods. Also discussed apps such as [employer] pal and lose it to maintain calorie deficit as well as discussed portion control. She is not interested in giving another trial of spironolactone for hirsutism/acne. I have peviously placed referral for dermatology for treatment of acne. I discussed importance of having a period at least every 3 months to prevent endometrial hyperplasia with risk of endometrial cancer. At this time her menses are regular so no need of menses inducing agents such as estrogen or progesterone. Plan: -lifestyle modification as discussed above -follow up as needed if periods become irregular or if she becomes interested in treating the hirsutism with meds Plan I spent 30 minutes in reviewing the record, seeing the patient and documenting in the medical record. Patient Instructions: ? Limit added sugars to less than 25 grams daily. There are 4.2 grams of sugar per teaspoon of sugar. A teaspoon of honey has 6 grams of sugar! Bread also can have more sugar than you think-check labels ? No soda or juices. Drink water, unsweetened iced tea or seltzer ? Limit eating out/take out or prepared meals to twice weekly at most ? Avoid red meat, hot dogs, hairston and deli meat. Substitute plant protein for animal protein as much as you can. Beans, nuts, tofu, soy milk ? Limit cheese to 1 ounce a few times weekly ? Eat high fiber foods like beans, apples and green veggies, salsa is a great snack with whole grain cracker like Wasa ? Look for the whole grain stamp when choosing bread etc. Aim for 48 grams of whole grains daily. Whole wheat does not equal whole grains! ? Don't keep tempting treats in the house. Go out once in a while for a treat. ? Don't eat anything deep fried or cream based-no sour cream Exercise 150 mins of cardio per week 2-3 days of resistance training in a week Coding Level of Care Code Est Pt Level 4 (30049) Diagnoses PCOS (polycystic ovarian syndrome) E28.2 Time Spent (min) 30
[2024-05-04 12:57] VITALS: BP 98/60; PULSE 97; BMI 26.2
--- OUTSIDE RECORDS SUMMARY | 2024-05-11 13:52 | XMS_ITS | Data Portability ---
Author Organization [place] - [facility], Allergy Address [address] [place] [phone] Care Team Providers Care Information Management Specialist Name Role Phone LANI VELAZQUEZ Primary Care Provider Assessment Encounter Date Assessment Date Assessment LastModified by Organization Details LastModified Time 03/17/2024 03/17/2024 28 year old female with concern for persistent enlarged right cervical lymph node. She cannot palpate it today nor can I. I have recommended follow up ultrasound of the neck given her continued concern. If the node is persistent and enlarged on that scan she may benefit from ultrasound guided FNA. TMs are intact and middle ear spaces are well aerated. I have encouraged her to use Flonase and antihistamine for allergy maintenance. I will follow up with patient regarding the ultrasound findings via the portal. [email or web address] Not available 03/17/2024 14:50:45 Plan of Treatment Reminders Order Date Submit Date Provider Last Modified By Organization Details Last Modified Time Details Appointments None recorded . Lab None recorded . Referral None recorded . Procedures None recorded . Surgeries None recorded . Imaging US, neck, soft tissue - f/u enlarged right cervical node 2023 024 [facility] (Imaging), [address] [place] [address], [address], 14:25:08 Medication Orders None recorded . Patient TargetsNo targets recorded. Patient InstructionsNo instructions recorded. Reason for Referral None Reported. Results Created Date Observation Date Name Description Value Unit Range Abnormal Flag Note LastModifiedBy Organization Detail LastModifiedTime 03/17/20 24 01/08/2024 US, thyro id No observ ation record ed. [email or web address] [facility] ([facility]) [address], [place], [address], 03/17/2024 16:38:24 03/18/20 24 01/08/2024 US, thyro id No observ ation record ed. Not Available 2023 17:05:49 Result Notes None recorded. Problems Name Problem SNOMED Code Status Onset Date Resolution Date Notes Provider Name and Address Organization Details Recorded Time Cervical lymphadenopath y 966997606 Active 2023 RODERICK ZUÑIGA PA-C [address] [place] [address], [phone], [place] - [facility] 14:19:16 Problem Notes None recorded. Procedures Surgical History Date Name Laterality Status Provider Name and Address Organization Details Recorded Time extraction of wisdom tooth completed Jovita Lara [place] - [facility] 03/17/2024 13:47:40 Adenoid Surgery completed Jvoita Lara [place] - [facility] 03/17/2024 13:47:53 Appendectomy completed Jovita Lara [place] - [facility] 03/17/2024 13:48:07 Imaging Results Imaging Date Name Status LastModified by Organiz ation Details LastModified Time 01/08/2024 US, thyroid completed [email or web address] [facility] ([facility]) [address] [facility] [address], [place], [address], 03/17/2024 16:38:24 01/08/2024 US, thyroid completed [email or web address] Information n ot available 03/18/2024 17:05:49 Procedure Notes None recorded. Medical Equipment None Reported. Allergies Allergen ID Allergen Name Allergen Category Reaction Reaction Severity Criticality Documentation Date Start Date Code Code System Note Provider Name and Address Organization Details Recorded Time 873698 Substance with sulfonami de structure and antibacte rial mechanism of action (substanc e) medicatio n Not available Not available Not available 03/17/2024 56433 8003 SNOMED Jovita potts [place] - [facility] 13:46:35 344369 Cipro medicatio n Not available Not available Not available 03/17/202405660 3 RxNorm Jovita potts [place] - [facility] 13:46:42 629341 Ativan medicatio n Not available Not available Not available 03/17/2024 9 RxNophilly potts [place] - [facility] 13:46:52 Medications Name Sig Start Date Stop Date Status Note LastModified by Organization Details LastModified Time amoxicillin 500 mg capsule active Not Available Not Available Not Available doxycycline hyclate 100 mg capsule TAKE 1 CAPSULE BY MOUTH 2 TIMES A DAY FOR 10 DAYS active Not Available Not Available Not Available cetirizine 10 mg tablet TAKE 1 TABLET BY MOUTH EVERY DAY active Not Available Not Available No t Available cefpodoxime 100 mg tablet TAKE 1 TABLET BY MOUTH TWICE A DAY FOR 7 DAYS active Not Available Not Available No t Available sumatriptan 25 mg tablet PLEASE SEE ATTACHED FOR DETAILED DIRECTIONS active Not Available Not Available N ot Available dicyclomine 20 mg tablet TAKE 1 TABLET BY MOUTH 2 TIMES A DAY FOR 10 DAYS. active Not Available Not Available No t Available meclizine 25 mg tablet TAKE 1 TABLET BY MOUTH THREE TIMES A DAY NEEDED active Not Available Not Available No t Available phenazopyrid ine 100 mg tablet TAKE 2 TABS BY MOUTH 3X A DAY NEEDED FOR PAIN (URINARY DISCOMFORT) . active Not Available Not Available No t Available doxycycline monohydrate 100 mg capsule TAKE 1 CAPSULE BY MOUTH TWICE A DAY FOR 5 DAYS active Not Available Not Available No t Available mupirocin 2 % topical ointment APPLY TO AFFECTED AREA 3 TIMES A DAY active Not Available Not Available Not Available methylpredni solone 4 mg tablets in a dose pack TAKE 6 TABLETS ON DAY 1 DIRECTED ON PACKAGE AND DECREASE BY 1 TAB EACH DAY FOR A TOTAL OF 6 DAYS active Not Available Not Available No t Available ondansetron 4 mg disintegrati ng tablet DISSOLVE 1 TABLET ON TONGUE EVERY 6 HOURS NEEDED FOR NAUSEA OR VOMITING FOR UP TO 7 DAYS. active Not Available Not Available No t Available fluticasone propionate 50 mcg/actuatio n nasal spray,suspen yasmine SPRAY 1 SPRAY INTO EACH NOSTRIL EVERY DAY active Not Available Not Available No t Available amoxicillin 875 mg-potassium clavulanate 125 mg tablet TAKE 1 TABLET BY MOUTH TWICE DAILY FOR 10 DAYS active Not Available Not Available No t Available amoxicillin 500 mg-potassium clavulanate 125 mg tablet TAKE 1 TABLET BY MOUTH 2 TIMES A DAY FOR 7 DAYS. TAKE WITH FOOD, YOGURT, PROBIOTICS. FINISH ALL. active Not Available Not Available Not Available nitrofuranto in monohydrate/ macrocrystal s 100 mg capsule TAKE 1 CAP BY MOUTH 2X A DAY FOR 5 DAYS. TAKE W FOOD, YOGURT, PROBIOTICS. FINISH ALL. active Not Available Not Available Not Available Paxlovid 300 mg (150 mg x 2)-100 mg tablets in a dose pack TAKE 3 TABLETS BY MOUTH TWICE A DAY FOR 5 DAYS active Not Available Not Available No t Available Vitals Date Recorded Body height Body mass index (BMI) Body weight Provider Name and Address Organization Details Last Updated DateTime 03/17/2024 157.48 cm 24.7 kg/m2 59701.97 g Jovita Lara [place] - [facility] 03/17/2024 13:45:51 Social History Question Answer Notes LastModified by Organizat ion Details LastModified Time Tobacco Smoking Status Never Smoker Jovita potts [place] [facility] 03/17/2024 13:47:30 What Is Your Level Of Alcohol Consumption? None Information not available 03/17/2024 Sex: Unknown Functional Status None recorded. Mental Status None recorded. Family History Nothing Reported. Medical History Condition Response Migraines Y Anxiety Y Depression Y Gynecological HistoryNo gynecological history recorded. Obstetrics History GPAL:G 0 P 0 0 0 0 Past Encounters Encounter ID Performer Location Encounter Start Date Encounter Closed Date Diagnosis/Indication Diagnosis SNOMED-CT Code Diagnosis ICD10 Code [id number] RODERICK ZUÑIGA PA-C [facility] [address] [address] 03/17/2024 13:24:46 03/17/2024 14:25:08 Cervical lymphadenopathy 906748469 R59.0 Ear examin ation normal 930763701 Z01.10 Health Concerns Section Related Observation LastModified by Organization Detai ls LastModified Time None Recorded Concern Status LastModified by Organization Details LastModified Time None Recorded Advance Directives Directive None Recorded Payers Encounter Date Sequence Insurance Name Policy Number Policy Aleman Covered Member ID Aleman Member ID Guarantor Name 03/17/2024 1 [facility] [employer] - HEALTH NET PLAN (MEDICAID HMO) ZACH Haq [id number] Ellen Ellenroyal Notes Date Note Type Note Provider Name and Address Organization Details Recorded Time 03/17/2024 text/html 28 year old ronnie magallanes presents for new patient appointment with two concerns. She reports that she had a swollen lymph node for two years in the right cervical neck. She cannot feel it today. She had an ultrasound in December at [facility]. Her PCP has recommended treating her with oral antibiotics for three months to see if the node resolves. Patient is concerned that this could represent cancer. She also presents to have her ears checked. She reports that she has had several left ear infections in the past year most recently a couple of months ago. She was treated with oral antibiotics. She was told that she had fluid in her ears and prescribed Flonase and advised to take an antihistamine. She has been using the Flonase but does not like having to take medication daily and has not been using an antihistamine. She reports severe dust allergy. RODERICK ZUÑIGA PA-C [address] [place] [address],[address] [address], [place], [address], [facility] - [facility] 03/17/2024 14:51:00 OBGyn Episode No OBEpisode recorded.
--- OUTSIDE RECORDS SUMMARY | 2024-05-11 13:52 | XMS_ITS | Continuity of Care Document ---
Author Organization [place] - [facility], [facility] Address [address] [place] [address] Care Team Providers Care Staying Machine Operator Name Role Phone LANI VELAZQUEZ Primary Care [...] f/u enlarged right cervical node 2023 024 [facility] (Imaging), [address] [place] [address], [address], 14:25:08 Medication Orders None recorded . Patient TargetsNo targets recorded. Patient InstructionsNo instructions recorded. Reason for Referral None Reported. Results Created Date Observation Date Name Description Value Unit Range Abnormal Flag Note LastModifiedBy Organization Detail LastModifiedTime 03/17/20 24 01/08/2024 US, thyro id No observ ation record ed. [facility] ([facility]) [address] [facility] [address], [place], [address], 03/17/2024 16:38:24 03/18/20 24 01/08/2024 US, thyro id No observ ation record ed. [email or web address] Not Available 2023 17:05:49 Result Notes None recorded. Problems Name Problem SNOMED Code Status Onset Date Resolution Date Notes Provider Name and Address Organization Details Recorded Time Cervical lymphadenopath y 155384494 Active 2023 RODERICK ZUÑIGA PA-C [address] [place] [address], [phone] [facility] [place] - [facility] 14:19:16 Problem Notes None recorded. Procedures Surgical History Date Name Laterality Status Provider Name and Address Organization Details Recorded Time extraction of wisdom tooth completed Jovita Lara [place] - [facility] 03/17/2024 13:47:40 Adenoid Surgery completed Jovita Lara [place] - [facility] 03/17/2024 13:47:53 Appendectomy completed Jovita Lara [place] - [facility] 03/17/2024 13:48:07 Imaging Results None recorded. Procedure Notes None recorded. Medical Equipment None Reported. Allergies Allergen ID Allergen Name Allergen Category Reaction Reaction Severity Criticality Documentation Date Start Date Code Code System Note Provider Name and Address Organization Details Recorded Time 750152 Substance with sulfonami de structure and antibacte rial mechanism of action (substanc e) medicatio n Not available Not available Not available 03/17/2024 70568 8003 SNOMED Jovita Lara null, [place] - [facility] 13:46:35 809816 Cipro medicatio n Not available Not available Not available 03/17/202496202 3 RxNorm Jovita Lara null, [place] - [facility] 13:46:42 265806 Ativan medicatio n Not available Not available Not available 03/17/2024 9 RxNorm Jovita Lara null, [place] - [facility] 13:46:52 Medications Name Sig Start Date [...] Updated DateTime 03/17/2024 157.48 cm 24.7 kg/m2 11023.97 g Jovita Lara [place] - [facility] 03/17/2024 13:45:51 Social History Question Answer Notes LastModified by Organizat ion Details LastModified Time Tobacco Smoking Status Never Smoker Jovita potts [place] - [facility] 03/17/2024 13:47:30 What Is Your Level Of Alcohol Consumption? None [email or web address] Information not available 03/17/2024 Sex: Unknown Functional Status None recorded. Mental Status None recorded. Family History Nothing Reported. Medical History Condition Response Migraines Y Anxiety Y Depression Y Gynecological HistoryNo gynecological history recorded. Obstetrics History GPAL:G 0 P 0 0 0 0 Past Encounters Encounter ID Performer Location Encounter Start Date Encounter Closed Date Diagnosis/Indication Diagnosis SNOMED-CT Code Diagnosis ICD10 Code [id number] RODERICK ZUÑIGA PA-C [facility] [address] [address] 03/17/2024 13:24:46 03/17/2024 14:25:08 Cervical lymphadenopathy 106429215 R59.0 Ear examin ation normal 872445892 Z01.10 Health Concerns Section Related Observation LastModified by Organization Detai ls LastModified Time None Recorded Concern Status LastModified by Organization Details LastModified Time None Recorded Payers Encounter Date Sequence Insurance Name Policy Number Policy Aleman Covered Member ID Aleman Member ID Guarantor Name 03/17/2024 1 [facility] HE[facility] (MEDICAID HMO) ZACH Haq [id number] Ellen Haq Notes Date Note Type Note Provider Name and Address Organization Details Recorded Time 03/17/2024 text/html 28 year old ronnie magallanes presents for new patient appointment with two concerns. She reports that she had a swollen lymph node for two years in the right cervical neck. She cannot feel it today. She had an ultrasound in December at [facility]. Her PCP has recommended treating her [...] reports severe dust allergy. RODERICK ZUÑIGA PA-C [address] [facility],[place] [address], [place], [phone], [facility] - [facility] 03/17/2024 14:51:00 OBGyn Episode No OBEpisode recorded.
== END 2024-05-04 13:13 | disposition home or self-care (01) ==
PROVIDERS: PCP Internal Medicine; Visit Provider Student in an Organized Health Care Education/Training Program
DX: E28.2 Polycystic ovarian syndrome (principal)
CPT/HCPCS: 99214

== ENCOUNTER → 2024-05-04 12:53 | Outpatient (BNVA) | payer OTHER, SELFPAY | PROVIDERS: PCP Internal Medicine; Visit Provider Student in an Organized Health Care Education/Training Program | DX: E28.2 Polycystic ovarian syndrome (principal) | CPT/HCPCS: 99212 ==

== ENCOUNTER 2024-07-29 11:32 | Outpatient (AMB) | payer OTHER, SELFPAY ==
--- NOTE | 2024-07-29 11:39 | MHC.PC.OV ---
Vital Signs 07/29/24 11:40 Height 5 ft 2 in Weight 123 lb BMI 22.5 BP 120/62 Blood Pressure Location Lt brachial Position Sitting Pulse 99 Pulse Source Pulse Oximeter Temp 97.5 F Temp Source Temporal Artery Scan Pulse Oximetry (%) 95 Oxygen Delivery Method Room Air Intake Visit Reasons: Back pain, passed out from pain Intake Note: Patient is here to follow up on Back pain. Crisis Intervention Specialist Required: No Family Development Extension Specialist: Not Required per policy Accompanied by: Self / Same As Patient Allergies ciprofloxacin [From Cipro] Allergy (Severe, Verified 07/29/24 11:46) Joint Pain Sulfa (Sulfonamide Antibiotics) Allergy (Severe, Verified 07/29/24 11:46) Hives lorazepam [From Ativan] Adverse Reaction (Severe, Verified 07/29/24 11:46) Uncomfortable Medication List - Last Reconciled 07/29/24 by JOAQUIN Mesa fluticasone propionate 50 mcg/actuation 1 spray intranasal DAILY Tobacco use date assessed: 07/29/24 Dental Screening Dental Screen Date: 07/29/24 Did you have a dental visit in the last 12 months?: No Did you have a dental problem in the last 6 months where you did not have access to dental care?: No Was dental information given to patient?: No HPI Back pain, passed out from pain HPI Details The patient is a 29 was significant past medical history Dai-Danlos syndrome, PCOS, cervical lymphpadenopathy Patient reports that her back gave out last Friday after bending to place something on a table Reports that she passed out from the intensity of the pain Patient reports that she felt the pain in her upper back 1st, but now the pain is in her lower back She reports that the pain felt like her back was dislocated and placed back together Patient reports that the pain is in the lower right side of her back, but on Friday the pain felt like it was on the opposite side She reports getting acupuncture done yesterday with some improvement The patient reports that currently the pain is dull. She reports that the pain does not affect her daily activity like walking and driving but it is difficult to sleep Reports that she is unable to sleep on her sides-which is her usual position She has to sleep on her stomach or back-with laying on her stomach being the more comfortable position The patient denies any cauda equina symptoms, reports that her legs feel slightly weak but she has not been eating since the pain started last Friday Reports that during the acupuncture treatment, it was noted that the right side of her back was swollen On exam: Lumbar spine, no apparent injury, no edema no erythema, right lower paraspinal tenderness Straight leg raise: Negative. We will refer the patient to PT. Cyclobenzaprine 10mg ordered for the patient to take at bedtime PRN only PFSH Medical History Thyroid nodule Acne Dai-Danlos syndrome Surgical History History of adenoidectomy [place] teeth extracted History of appendectomy Family History Mother Dai-Danlos syndrome Mental health disorder Father No problems noted. Brother No problems noted. 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 1. Little interest or pleasure in doing things: not at all 2. Feeling down, depressed, or hopeless: not at all 3. Trouble falling or staying asleep, or sleeping too much: not at all 4. Feeling tired or having little energy: not at all 5. Poor appetite or overeating: not at all 6. Feeling bad about yourself - or that you are a failure or have let yourself or your family down: not at all 7. Trouble concentrating on things, such as reading the newspaper or watching television: not at all 8. Moving or speaking so slowly that other people could have noticed. Or the opposite - being so fidgety or restless that you have been moving around a lot more than usual: not at all 9. Thoughts that you would be better off or of hurting yourself in some way: not at all Total score: 0 Depression Screening Interpretation: Negative Depression Screening Done: Yes 23490 - PHQ-9 Billing: Yes Source: Developed by Drs. Josef Poole, Rere Gonzalez, Frankie Mazariegos and colleagues, with an educational palomo from [employer]. Thrive Questionnaire Date Thrive assessed: 07/29/24 I am a: Patient What is your living situation today?: I have a steady place to live Within the past 12 months, did the food you bought not last and you didn't have the money to get more?: Never true Within the past 12 months, did you worry whether your food would run out before you got money to buy more?: Never true Do you have trouble paying for medicines?: No Do you have trouble getting transportation to medical appointments?: No Do you have trouble paying your heating and electricity bill?: No Do you have trouble taking care of your child, family member or friend?: No Do you have trouble with day-to-day activities such as bathing, preparing meals, shopping, managing finances, etc.?: No Are you currently unemployed and looking for a job?: No Are you interested in more education?: No Please select the resources that you would like help with: None Currently or been in a relationship where the following occur: No concerns reported THRIVE Score: 0 AUDIT C Alcohol Use Questionnaire (AUDIT-C) 1. How often do you have a drink containing alcohol?: Never Total Score: 0 DILSHAD-7 AMB Questionnaire DILSHAD-7 Date DILSHAD - 7 assessed: 07/29/24 Feeling nervous, anxious, or on edge: 0 = Not at all Not being able to stop or control worryin = Not at all Worrying too much about different things: 0 = Not at all Trouble relaxin = Not at all Being so restless that it is hard to sit still: 0 = Not at all Becoming easily annoyed or irritable: 0 = Not at all Feeling afraid as if something awful might happen: 0 = Not at all Total DILSHAD-7 score (0-4 normal; 5-9 mild; 10-14 moderate; 15-21 severe): 0 Source: Developed by Drs. Josef Poole, Rere Gonzalez, Frankie Mazariegos and colleagues, with an educational palomo from [employer]. DILSHAD-7 Assessment Billing DILSHAD-7 Assessment Tool: DILSHAD-7 Assessment 90904 Review of Systems Const Details: Denies chills, Denies fatigue, Denies fever(s), Denies headache(s) and Denies weakness HEENT Denies change in vision, Denies dizziness, Denies headache(s), Denies hearing loss, Denies nasal congestion, Denies sinus pain, Denies sinus pressure and Denies sore throat Card Denies chest pain, Denies lightheadedness, Denies dyspnea and Denies other (palpitations) Resp Denies cough, Denies dyspnea and Denies wheezing GI Denies abdominal pain, Denies melena, Denies hematochezia, Denies change in bowel habits, Denies dyspepsia and Denies nausea Denies hematuria and Denies dysuria Musc Denies abnormal gait, Denies +myalgias (lower back pain), Denies arthralgias, Denies numbness and Denies tingling Skin/Breast Denies rash, Denies unusual bruising and Denies wounds Neuro Denies abnormal gait, Denies dizziness, Denies headache(s), Denies memory loss, Denies numbness, Denies Sensory deficit (Neuro), Denies tingling and Denies weakness Psych Denies anxiety, Denies depression and Denies memory loss Endo Denies cold intolerance, Denies fatigue, Denies heat intolerance, Denies polydipsia and Denies polyuria Torito/Lymph Denies easy bleeding and Denies easy bruising Aller/Immun Denies wheezing Physical exam (Primary Care) Vital Signs: Last Vital Signs Temp 97.5 F 07/29/24 11:40 Pulse 99 07/29/24 11:40 BP 120/62 07/29/24 11:40 Pulse Ox 95 07/29/24 11:40 Oxygen Delivery Method Room Air 07/29/24 11:40 BMI result Body Mass Index 22.5 Tobacco/Smoking Status: Tobacco use Status Tobacco use date assessed 07/29/24 07/29/24 11:44 Patient Tobacco Use Status Never used Tobacco 07/29/24 11:44 Tobacco use type Cigarette 07/29/24 11:44 e-Cigarette/Vaping Use Never Used 07/29/24 11:44 PHQ-9: PHQ-9 Score PHQ-9: Total score 0 07/29/24 12:20 Depression Screening Interpretation: Negative Thrive Assessment: Date of Thrive Assessment Date Thrive assessed 07/29/24 07/29/24 11:44 Currently or been in a relationship where the following occur: No concerns reported Const Other: General: no acute distress, well developed, alert and awake Nutritional Appearance: well nourished Orientation/consciousness: patient oriented x3 [facility] Head: Yes normocephalic and Yes atraumatic Eyes Pupils: Equal, round and reactive pupils present and Pupil accommodation reflex normal EOM: EOMs intact bilaterally Neck Neck: Yes normal visual inspection, Yes no lymphadenopathy Thyroid: Thyroid normal Resp Effort & Inspection: normal respiratory effort Auscultation: clear to auscultation bilaterally Cardio Rate: regular rate Rhythm: regular rhythm Heart sounds: S1 normal heart sound present, S2 normal heart sound present, no gallops, no murmurs and no rubs Bruits: no abdominal aortic bruits and no carotid bruits GI Palpation (GI): Abdomen is soft and nontender to palpation Auscultation: normal bowel sounds General: Yes no CVA tenderness Back/Spine/Pelvis Back: no CVA tenderness Cervical Spine: cervical ROM normal and No Cervical spine tenderness Thoracic/Lumbar Spine: thoraco-lumbar ROM normal, No pain with thoraco-lumbar ROM, No thoracic spinal tenderness and No lumbar spinal tenderness other: Skin General: warm and dry. Normal skin color. Normal skin turgor Lesions: no lesions Rashes: no rashes Trauma: no lacerations or abrasions Wounds: no wounds Nails: normal Neuro General: patient oriented x3, gait normal and CN's II-XI intact bilaterally Cranial nerves: Yes Equal, round and reactive pupils present Cognition (Neuro): normal cognition Gait exam (Neuro): Normal gait present Motor exam (neuro): 5/5 motor strength present throughout Sensory Exam: No Sensory deficit (Neuro) Deep tendon reflexes (DTR's): Right patellar reflex intensity grade: 2+ and Left patellar reflex intensity grade: 2+ Extrem General: Yes normal to inspection, No edema and No calf tenderness Psych Appearance: grossly normal Affect: normal affect Attitude: cooperative Thought process: Normal thought process present Coding Level of Care Code Est Pt Level 3 (63340) Diagnoses Acute right-sided low back pain without sciatica M54.50 Back pain location: low back pain Chronicity: acute Back pain laterality: right Sciatica presence: without sciatica Additional Codes PHQ-9 - 53040 - PHQ-9 Billing: Yes ([id number]) DILSHAD-7 Assessment Billing - DILSHAD-7 Assessment Tool: DILSHAD-7 Assessment 04928 ([id number]) Time Spent (min) 27 Assessment & Plan Assessment & Plan (1) Back pain: Code(s): M54.9 - Dorsalgia, unspecified Category: Medical Qualifiers: Back pain location: low back pain Chronicity: acute Back pain laterality: right Sciatica presence: without sciatica Qualified Code(s): M54.50 - Low back pain, unspecified Plan: Lumbar spine, no apparent injury, no edema no erythema, right lower paraspinal tenderness Straight leg raise: Negative. We will refer the patient to PT. Cyclobenzaprine 10mg ordered for the patient to take at bedtime PRN only Orders: Orders PT Evaluation and Treatment Today M54.9 - Dorsalgia, unspecified Medications: New cyclobenzaprine 10 mg PO BEDTIME PRN 30 tabs 2RF muscle spasm
[2024-07-29 11:40] VITALS: BP 120/62; PULSE 99; TEMP 36.4; O2SAT 95; BMI 22.5
--- OUTSIDE RECORDS SUMMARY | 2024-07-29 14:00 | XMS_ITS | Data Portability ---
Author Organization [place] - [facility], Allergy Address [address] [place] [id number] Care Team Providers Care Belt Measurer Name Role Phone LANI VELAZQUEZ Primary Care Provider [phone] Assessment Encounter Date Assessment Date Assessment LastModified [...] f/u enlarged right cervical node 2023 024 [facility] (Imaging), [address] [place] [address], [address], 14:25:08 Medication Orders None recorded . Patient TargetsNo targets recorded. Patient InstructionsNo instructions recorded. Reason for Referral None Reported. Results Created Date Observation Date Name Description Value Unit Range Abnormal Flag Note LastModifiedBy Organization Detail LastModifiedTime 03/17/20 24 01/08/2024 US, thyro id No observ ation record ed. [email or web address] [facility] [address], [place], [address], 03/17/2024 16:38:24 03/18/20 24 01/08/2024 US, thyro id No observ ation record ed. [email or web address] Not Available 2023 17:05:49 Result Notes None recorded. Problems Name Problem SNOMED Code Status Onset Date Resolution Date Notes Provider Name and Address Organization Details Recorded Time Cervical lymphadenopath y 820624401 Active 2023 RODERICK ZUÑIGA PA-C [address] [place] [address], [id number], [place] - [facility] 14:19:16 Problem Notes None recorded. Procedures Surgical History Date Name Laterality Status Provider Name and Address Organization Details Recorded Time extraction of wisdom tooth completed Jovita Lara [place] - [facility] 03/17/2024 13:47:40 Adenoid Surgery completed Jovita Lara [place] - [facility] 03/17/2024 13:47:53 Appendectomy completed Jovita Lara [place] - [facility] 03/17/2024 13:48:07 Imaging Results Imaging Date Name Status LastModified by Organiz ation Details LastModified Time 01/08/2024 US, thyroid completed [email or web address] [facility] [address] [facility] [address], [place], [address], 03/17/2024 16:38:24 01/08/2024 US, thyroid completed [email or web address] Information n ot available 03/18/2024 17:05:49 Procedure Notes None recorded. Medical Equipment None Reported. Allergies Allergen ID Allergen Name Allergen Category Reaction Reaction Severity Criticality Documentation Date Start Date Code Code System Note Provider Name and Address Organization Details Recorded Time 251937 Substance with sulfonami de structure and antibacte rial mechanism of action (substanc e) medicatio n Not available Not available Not available 03/17/2024 82191 8003 SNOMED Jovita potts [place] - [facility] 13:46:35 [id number] Cipro medicatio n Not available Not available Not available 03/17/202492798 3 RxNorm Jovita potts [place] - [facility] 13:46:42 139159 Ativan medicatio n Not available Not available Not available 03/17/2024 9 RxNophilly potts [place] - [facility] 13:46:52 Medications Name Sig Start Date [...] Updated DateTime 03/17/2024 157.48 cm 24.7 kg/m2 27745.97 g Jovita Lara [place] - [facility] 03/17/2024 13:45:51 Social History Question Answer Notes LastModified by Organizat ion Details LastModified Time Tobacco Smoking Status Never Smoker Jovita potts [place] [facility] 03/17/2024 13:47:30 What Is Your Level Of Alcohol Consumption? None [email or web address] Information not available 03/17/2024 Sex: Unknown Functional Status None recorded. Mental Status None recorded. Family History Nothing Reported. Medical History Condition Response Anxiety Y Migraines Y Depression Y Gynecological HistoryNo gynecological history recorded. Obstetrics History GPAL:G 0 P 0 0 0 0 Past Encounters Encounter ID Performer Location Encounter Start Date Encounter Closed Date Diagnosis/Indication Diagnosis SNOMED-CT Code Diagnosis ICD10 Code Diagnosis Note [id number] RODERICK ZUÑIGA PA-C [facility] [address] [address] 03/17/2024 13:24:46 03/17/2024 14:25:08 Cervical lymphadenopathy 011856717 R59.0 Ear examin ation normal 939285314 Z01.10 Health Concerns Section Related Observation LastModified by Organization Detai ls LastModified Time None Recorded Concern Status LastModified by Organization Details LastModified Time None Recorded Advance Directives Directive None Recorded Payers Encounter Date Sequence Insurance Name Policy Number Policy Aleman Covered Member ID Aleman Member ID Guarantor Name 03/17/2024 1 [employer] - HEALTH NET PLAN (MEDICAID HMO) ZACH Haq [id number] Ellen Haq Notes Date Note Type Note Provider Name and Address Organization Details Recorded Time 03/17/2024 text/html 28 year old ronnie magallanes presents for new patient appointment with two concerns. She reports that she had a swollen lymph node for two years in the right cervical neck. She cannot feel it today. She had an ultrasound in December at [facility]. Her PCP has recommended treating her with [...] reports severe dust allergy. RODERICK ZUÑIGA PA-C [address] [place] [address],[place] [address], [place], [address], [facility] - [facility] 03/17/2024 14:51:00 OBGyn Episode No OBEpisode recorded.
--- OUTSIDE RECORDS SUMMARY | 2024-07-29 14:00 | XMS_ITS | Continuity of Care Document ---
Author Organization [facility] Address [address] [place] [address] Phone [phone] Problems Active Problems Provider Date Polycystic ovary syndrome Amador Gregorio M.D. Onset: 10/21/2022 Anxiety disorder Amador Gregorio M.D. Onset: Immunoglobulin A deficiency Randa Howard Onset: 10/21/2022 Dai-Danlos syndrome Amador Gregorio M.D. Ons et: 10/21/2022 Attention deficit hyperactivity disorder Amador godinez M.D. Onset: 10/21/2022 Lymphadenopathy Amador Gregorio M.D. Onset: Social History Type Date Description Comments Sex Unknown Allergies and adverse reactions Active Allergies Criticality Reaction Severity Comments Date Sulfamethoxazole Unable to assess criticality 10/21/2022 Lorazepam Unable to assess criticality 10/21/2022 Medical Devices Description No Information Available Encounters Description No Information Available Assessments Description No Information Available Plan of Treatment No Information Available Functional Status Description No Information Available Mental Status Description No Information Available Referrals Description No Information Available
== END 2024-07-29 12:05 | disposition home or self-care (01) ==
PROVIDERS: PCP Internal Medicine
DX: M54.50 Low back pain, unspecified (principal)

== ENCOUNTER → 2024-07-29 11:32 | Outpatient (BNVA) | payer OTHER, SELFPAY | PROVIDERS: PCP Internal Medicine | DX: M54.50 Low back pain, unspecified (principal) | CPT/HCPCS: 96127; 99212 ==

== ENCOUNTER 2024-11-19 09:28 | Outpatient (AMB) | payer OTHER, SELFPAY ==
[2024-11-19 09:40] VITALS: BP 108/60; PULSE 74; TEMP 36.3; O2SAT 98; BMI 22.5
--- NOTE | 2024-11-19 09:40 | A.OFFPC_ITS ---
Vital Signs 11/19/24 09:40 Height 5 ft 2 in Weight 123 lb 2 oz BMI 22.5 BP 108/60 Blood Pressure Location Lt brachial Position Sitting Pulse 74 Pulse Source Pulse Oximeter Temp 97.3 F Temp Source Temporal Artery Scan Pulse Oximetry (%) 98 Oxygen Delivery Method Room Air Intake Visit Reasons: walk-in f/u UTI 11/01 Intake Note: Pt is requesting an urology referral. Customer Relations Advisor Required: No Accompanied by: Self / Same As Patient Allergies ciprofloxacin (From Cipro) Allergy (Severe, Verified 11/19/24 09:41) Joint Pain Sulfa (Sulfonamide Antibiotics) Allergy (Severe, Verified 11/19/24 09:41) Hives lorazepam (From Ativan) Adverse Reaction (Severe, Verified 11/19/24 09:41) Uncomfortable Tobacco use date assessed: 07/29/24 Dental Screening Dental Screen Date: 07/29/24 HPI HPI Comments History of Present Illness Details 29 y/o female patient who presents to e clinic today with c/o pelvic/lower abdominal pain associated with dysuria and vaginal itching since September. She has been seen multiple times at ED and UC back in September for similar concerns. She was told that she had UTI and given Oral Abx. Symptoms did not improve, so she returned to another where are urine was tested - negative for UTI. She presents today asking for Urology referral. Pt sexually active with same sex partner (Broke up back in June) - asking today for STI screening. Denies Nausea, vomiting, fevers or chills. She does have Pelvic tenderness, vaginal itching and some discharge. [facility] Medical History (Updated 11/19/24 @ 10:23 by Vivi Laughlin NP) Vaginitis and vulvovaginitis Thyroid nodule Acne Dai-Danlos syndrome Surgical History History of adenoidectomy [place] teeth extracted History of appendectomy Family History Mother Dai-Danlos syndrome Mental health disorder Father No problems noted. Brother No problems noted. 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 1. Little interest or pleasure in doing things: not at all 2. Feeling down, depressed, or hopeless: not at all 3. Trouble falling or staying asleep, or sleeping too much: not at all 4. Feeling tired or having little energy: not at all 5. Poor appetite or overeating: not at all 6. Feeling bad about yourself - or that you are a failure or have let yourself or your family down: not at all 7. Trouble concentrating on things, such as reading the newspaper or watching television: not at all 8. Moving or speaking so slowly that other people could have noticed. Or the opposite - being so fidgety or restless that you have been moving around a lot more than usual: not at all 9. Thoughts that you would be better off or of hurting yourself in some way: not at all Total score: 0 Depression Screening Interpretation: Negative Depression Screening Done: Yes 75048 - PHQ-9 Billing: Yes Source: Developed by Drs. Josef Poole, Rere Gonzalez, Frankie Mazariegos and colleagues, with an educational palomo from [employer]. Thrive Questionnaire Date Thrive assessed: 11/19/24 I am a: Patient What is your living situation today?: I have a steady place to live Within the past 12 months, did the food you bought not last and you didn't have the money to get more?: I choose not to answer this question Within the past 12 months, did you worry whether your food would run out before you got money to buy more?: I choose not to answer this question Do you have trouble paying for medicines?: I choose not to answer this question Do you have trouble getting transportation to medical appointments?: I choose not to answer this question Do you have trouble paying your heating and electricity bill?: I choose not to answer this question Do you have trouble taking care of your child, family member or friend?: I choose not to answer this question Do you have trouble with day-to-day activities such as bathing, preparing meals, shopping, managing finances, etc.?: I choose not to answer this question Are you currently unemployed and looking for a job?: I choose not to answer this question Are you interested in more education?: I choose not to answer this question Please select the resources that you would like help with: None Currently or been in a relationship where the following occur: I choose not to answer THRIVE Score: 0 AUDIT C Alcohol Use Questionnaire (AUDIT-C) 1. How often do you have a drink containing alcohol?: Never 3. How often do you have six or more drinks on one occasion?: Never Total Score: 0 DILSHAD-7 AMB Questionnaire DILSHAD-7 Date DILSHAD - 7 assessed: 11/19/24 Feeling nervous, anxious, or on edge: 0 = Not at all Not being able to stop or control worryin = Not at all Worrying too much about different things: 0 = Not at all Trouble relaxin = Not at all Being so restless that it is hard to sit still: 0 = Not at all Becoming easily annoyed or irritable: 0 = Not at all Feeling afraid as if something awful might happen: 0 = Not at all Total DILSHAD-7 score (0-4 normal; 5-9 mild; 10-14 moderate; 15-21 severe): 0 Source: Developed by Drs. Josef Poole, Rere Gonzalez, Frankie Mazariegos and colleagues, with an educational palomo from [employer]. DILSHAD-7 Assessment Billing DILSHAD-7 Assessment Tool: DILSHAD-7 Assessment 38043 Review of Systems Const All systems reviewed & are unremarkable except as noted in HPI and below Physical exam (Primary Care) Vital Signs: Last Vital Signs Temp 97.3 F 11/19/24 09:40 Pulse 74 11/19/24 09:40 BP 108/60 11/19/24 09:40 Pulse Ox 98 11/19/24 09:40 Oxygen Delivery Method Room Air 11/19/24 09:40 BMI result Body Mass Index 22.5 Tobacco/Smoking Status: Tobacco use Status Tobacco use date assessed 07/29/24 11/19/24 09:42 Patient Tobacco Use Status Never used Tobacco 11/19/24 09:42 Tobacco use type Cigarette 11/19/24 09:42 e-Cigarette/Vaping Use Never Used 11/19/24 09:42 PHQ-9: PHQ-9 Score PHQ-9: Total score 0 11/19/24 10:30 Depression Screening Interpretation: Negative Thrive Assessment: Date of Thrive Assessment Date Thrive assessed 11/19/24 11/19/24 09:42 Currently or been in a relationship where the following occur: I choose not to answer Const General: no acute distress and anxious Nutritional Appearance: thin Orientation/consciousness: patient oriented x3 GI Palpation (GI): Soft to palpation, not firm, Tenderness to palpation present (GI) suprapubicly, no guarding, not rigid and No hepatosplenomegaly present Auscultation: normoactive bowel sounds General: Yes bladder normal to palpation and Yes no CVA tenderness Speculum Exam - Vagina: normal palpation, abnormal vaginal discharge white and malodorous and tenderness bilaterally Speculum Exam - Cervix: normal appearance of the cervix Bimanual exam- vagina & uterus: normal palpation, uterine size normal, bladder normal to palpation and cervical motion tenderness Back/Spine/Pelvis Back: no CVA tenderness and No back tenderness Neuro General: patient oriented x3, gait normal and moves all extremities Results AMB Urinalysis, Automated UA Leukoctes 70 Jenn/uL Last Edit by BASILIO De Luna on 11/19/24 09:51 UA Nitrite Negative Last Edit by BASILIO De Luna on 11/19/24 09:51 UA Urobilinogen 0 mg/dL Last Edit by BASILIO De Luna on 11/19/24 09:51 UA Protein 15 mg/dL Last Edit by BASILIO De Luna on 11/19/24 09:51 UA pH 6.0 Last Edit by BASILIO De Luna on 11/19/24 09:51 UA Blood 0 Vic/uL Last Edit by BASILIO De Luna on 11/19/24 09:51 UA Specific [place] 1.030 Last Edit by BASILIO De Luna on 11/19/24 09:51 UA Ketone Negative Last Edit by BASILIO De Luna on 11/19/24 09:51 UA Bilirubin 0 mg/dL Last Edit by BASILIO De Luna on 11/19/24 09:51 UA Glucose 0 mg/dL Last Edit by BASILIO De Luna on 11/19/24 09:51 Results Reviewed Results Reviewed: Laboratory Last Values Urine pH (Auto) 6.0 11/19/24 09:48 Specific [place] (Auto) 1.030 11/19/24 09:48 Urine Protein (Auto) 15 mg/dL 11/19/24 09:48 Glucose (UA)(Auto) 0 mg/dL 11/19/24 09:48 Urine Ketones (Auto) Negative 11/19/24 09:48 Urine Blood (Auto) 0 Vic/uL 11/19/24 09:48 Urine Nitrite (Auto) Negative 11/19/24 09:48 Urine Bilirubin (Auto) 0 mg/dL 11/19/24 09:48 Urine Urobilinogen (Auto) 0 mg/dL 11/19/24 09:48 Leukocyte Esterase (Auto) 70 Jenn/uL 11/19/24 09:48 Coding Level of Care Code Est Pt Level 4 (45327) Diagnoses Vaginitis and vulvovaginitis N76.0 Additional Codes DILSHAD-7 Assessment Billing - DILSHAD-7 Assessment Tool: DILSHAD-7 Assessment 71500 ([id number]) PHQ-9 - 53588 - PHQ-9 Billing: Yes ([id number]) Time Spent (min) 20 Assessment & Plan Assessment & Plan (1) Vaginitis and vulvovaginitis: Code(s): N76.0 - Acute vaginitis Category: Medical Plan: Pelvic Exam consistent with BV/Yeast - ordered Treatment for both and sent vaginal swab. Recent use of Abx. Ordered NT/CG swabs Ordered CBC per Patient's request due to abnormal levels in the ED (back in September). Urinalysis negative (Mild Trace of Leuco) - Advised Patient to hold off referral to Urology since there is no sufficient evidence to indicate Chronic/frequent UTIs at this point. Most of her symptoms could be related to Pelvic/Vaginitis. Orders: Orders AMB Urinalysis Automated Today M54.50 - Low back pain, unspecified Bacterial Vaginosis Panel Today N76.0 - Acute vaginitis CT NG by PCR Today N76.0 - Acute vaginitis Trichomonas vaginalis RNA Today N76.0 - Acute vaginitis Complete Blood Count Auto Diff Today N76.0 - Acute vaginitis HIV Ab/Ag Today N76.0 - Acute vaginitis Syphilis Screen Today N76.0 - Acute vaginitis
--- OUTSIDE RECORDS SUMMARY | 2024-11-19 09:44 | XMS_ITS | Continuity of Care Document ---
Author Organization [facility] Address [address] [place] [address] Phone [phone] Problems Active Problems Provider Date Polycystic ovary syndrome Amador Gregorio M.D. Onset: 10/21/2022 Anxiety disorder Amador Greogrio M.D. Onset: Immunoglobulin A deficiency Randa Howard Onset: 10/21/2022 Dai-Danlos syndrome Amador Gregorio M.D. Ons et: 10/21/2022 Attention deficit hyperactivity disorder Amador godinez M.D. Onset: 10/21/2022 Lymphadenopathy Amador Gregorio M.D. Onset: Social History Type Date Description Comments Sex Female Sex Unknown Allergies and adverse reactions Active [...]
== END 2024-11-19 10:27 | disposition home or self-care (01) ==
LOC: HO.HMCH 09:29
PROVIDERS: PCP Internal Medicine; Visit Provider Nurse Practitioner Family
DX: M54.50 Low back pain, unspecified (principal); N76.0 Acute vaginitis

== ENCOUNTER 2024-11-19 09:28 | Outpatient (REF) | payer OTHER, SELFPAY ==
[2024-11-19 10:38] LABS: MANUAL DIFF FLAG NO
[2024-11-19 10:45] LABS: Basophils Percent Auto 0.7 % (0-2); Eosinophils Absolute Auto 0.2 X10*3/uL (0.0-0.4); Eosinophils Percent Auto 3.4 % (0-4); Hematocrit 38.7 % (37.0-47.0); Imm Gran Abs Auto 0.01 X10*3/uL (0.00-0.03); Imm Gran Pct Auto 0.2 % (0.0-0.4); Lymphocytes Percent Auto 33.1 % (20-40); Mean Corpuscular HGB Conc 33.6 g/dl (31.0-35.0); Mean Corpuscular Hemoglobin 30.7 pg (27.0-33.0); Mean Corpuscular Volume 91.3 fL (80.0-98.0); Mean Platelet Volume 9.9 fL (9.4-12.3); Monocytes Absolute Auto 0.3 X10*3/uL (0.1-1.2); Monocytes Percent Auto 5.7 % (2-11); Neutrophils Absolute Auto 3.4 x10*3/uL (2.0-8.3); Neutrophils Percent Auto 56.9 % (45-73); Platelet Count 220 X10*3/uL (160-400); Red Blood Count 4.24 X10*6/uL (4.20-5.50); Red Cell Distribution Width 12.6 % (11.0-16.0); White Blood Count 5.9 X10*3/uL (4.8-10.8)
[2024-11-19 11:43] LABS: Syphilis Screen Nonreactive (Nonreactive)
[2024-11-19 11:44] LABS: HIV AB/AG Nonreactive (Nonreactive); HIV Num 1 0.06 S/CO (0.00-0.99)
[2024-11-19 13:39] LABS: Bacterial Vaginosis PCR NEGATIVE (Negative); Candida Group PCR NOT DETECTED (Not Detect); Candida glab krusei PCR NOT DETECTED (Not Detect); Trichomonas vaginalis PCR NOT DETECTED (Not Detect)
[2024-11-19 15:47] LABS: CT PCR NOT DETECTED (Not Detect.); NG PCR NOT DETECTED (Not Detect.)
== END 2024-11-19 09:29 | disposition home or self-care (01) ==
LOC: HO.LAB 09:28
PROVIDERS: PCP Internal Medicine; Visit Provider Nurse Practitioner Family
DX: N76.0 Acute vaginitis (principal)
CPT/HCPCS: 36415; 81003; 81515; 85025; 86780; 87389; 87491; 87591; 96127; 99212

== ENCOUNTER 2024-11-26 14:00 | Outpatient (RCR) | payer OTHER, SELFPAY ==
--- NOTE | 2024-09-23 09:39 | MHC.PT.EP ---
[facility] [place] Office [place] [facility] [place] Office [address] Clarisse Bell [address] [phone] F: [phone] F: [phone] F: [phone] F: [phone] Physical Therapy Plan of Care Date of Evaluation: 09/22/24 Date of Surgery: Diagnosis: dorsalgia (MD Dx) RIGHT sided lumbar strain (PT Dx) RS Assessment: Ellen is a pleasant motivated 29 y.o. female with PMHx of Ehler Danlos Syndrome who is referred to PT by Dr. Brooklyn Barker MD, with Dx of dorsalgia. PT diagnosis is RIGHT sided lumbar strain. Patient impairments include poor postures, limitation in ROM in lumbar sidebending and extension, tenderness in R sided lumbosacral musculatue, weakness in R hip. Patient current functional limitations are difficulty prolonged standing and sitting, bend/squat, pain with lifting heavy items, walking. Patient will benefit from skilled PT to address aforementioned impairments and functional limitations to meet established goals. Frequency and Duration: The patient will be seen 1-2x/week for 4 weeks Short Term Goals: 2 weeks Ellen demonstrates consistency and independence with HEP to self manage symptoms. Senior Living Goals: 4 weeks Ellen presents with increased R hip flexion 5/5 to be able to bend/squat without sxs. Ellen presents with increased lumbar sidebending 30 degrees bilaterall to resroe mobility for ambulation, shows arm and trunk swing. Treatment Plan: Modalities to reduce pain, spasms and effusion. Manual therapy to restore motion and function. Therapeutic exercise to improve strength and flexibility. Neuromuscular re-education for posture and balance. Therapeutic activities to return to functional activities of daily living. Electronically signed by: Scottie Cherry, PT, DPT Please sign and return to therapist. Thank you for your referral.
--- NOTE | 2024-12-31 09:46 | MHC.PT.DC ---
[facility] [place] [facility] [place] Office [place] Office [address] Clarisse Bell [address] [phone] F: [phone] F: [phone] F: [phone] F: [phone] Physical Therapy Discharge Report Diagnosis: dorsalgia (MD Dx) RIGHT sided lumbar strain (PT Dx) RS Date of Surgery: Date of Evaluation: 09/22/24 Date of Discharge: 12/31/24 Treatments to Date: 7 Cancellations to Date: 2 No Shows to Date: 0 Discharge Status: Improved Function Independent with HEP Discharge Summary: Ellen did well with PT interventions including modalities, manual therapy and therapeutic exercises and activities which did help her to decrease and manage her symptoms. She was last treated in PT on 11/26/24 and is discharged from PT at this time. Electronically signed by: Scottie Cherry, PT, DPT Please sign and return to therapist. Thank you for your referral.
== END 2024-12-31 09:46 | disposition home or self-care (01) ==
LOC: HO.PT 14:00
PROVIDERS: PCP Internal Medicine; Referring Provider Internal Medicine; Visit Provider Internal Medicine
DX: M54.9 Dorsalgia, unspecified (principal)
CPT/HCPCS: 97110; 97112; 97140; 97161; 97162; 97530

== ENCOUNTER 2025-01-18 13:00 | Outpatient (AMB) | payer OTHER, SELFPAY ==
--- NOTE | 2025-01-18 13:02 | A.OFFPC_ITS ---
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 Accompanied by: Self / Same As Patient Allergies ciprofloxacin (From Cipro) Allergy (Severe, Verified 01/18/25 13:10) Joint Pain Sulfa (Sulfonamide Antibiotics) Allergy (Severe, Verified 01/18/25 13:10) Hives lorazepam (From Ativan) Adverse Reaction (Severe, Verified 01/18/25 13:10) Uncomfortable Medication List - Last Reconciled 01/18/25 by Brooklyn Milner MD No Known Home Meds Tobacco use date assessed: 01/18/25 Dental Screening Dental Screen Date: 01/18/25 Did you have a dental visit in the last 12 months?: Yes Did you have a dental problem in the last 6 months where you did not have access to dental care?: No Was dental information given to patient?: Patient has dentist HPI HPI Comments History of Present Illness Details Patient is here for her physical exam. Vaccines are up-to-date. She will have Pap smear scheduled for this year. She complains of headaches associated with mold exposure and I will order a RAST test. She also has some gluten sensitivity and is wondering if she has celiac disease. She has acne and would like to see Dermatology. [facility] Medical History (Updated 01/18/25 @ 13:31 by Brooklyn Milner MD) Vaginitis and vulvovaginitis Thyroid nodule Acne Dai-Danlos syndrome Surgical History History of adenoidectomy [place] teeth extracted History of appendectomy Family History Mother Dai-Danlos syndrome Mental health disorder Father No problems noted. Brother No problems noted. 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 Current occupational exposures/hazards: No Cognitive needs: No Hearing needs: No Vision needs: Yes (Glasses) Questionnaire Thrive Questionnaire Date Thrive assessed: 01/18/25 I am a: Patient What is your living situation today?: I have a steady place to live Within the past 12 months, did the food you bought not last and you didn't have the money to get more?: I choose not to answer this question Within the past 12 months, did you worry whether your food would run out before you got money to buy more?: I choose not to answer this question Do you have trouble paying for medicines?: I choose not to answer this question Do you have trouble getting transportation to medical appointments?: I choose not to answer this question Do you have trouble paying your heating and electricity bill?: I choose not to answer this question Do you have trouble taking care of your child, family member or friend?: I choose not to answer this question Do you have trouble with day-to-day activities such as bathing, preparing meals, shopping, managing finances, etc.?: I choose not to answer this question Are you currently unemployed and looking for a job?: I choose not to answer this question Are you interested in more education?: I choose not to answer this question Please select the resources that you would like help with: None Currently or been in a relationship where the following occur: I choose not to answer THRIVE Score: 0 AUDIT C Alcohol Use Questionnaire (AUDIT-C) 1. How often do you have a drink containing alcohol?: Never 3. How often do you have six or more drinks on one occasion?: Never Total Score: 0 Score Reviewed/Action Taken: No DILSHAD-7 AMB Questionnaire DILSHAD-7 Date DILSHAD - 7 assessed: 01/18/25 Source: Developed by Drs. Josef Poole, Rere Gonzalez, Frankie Mazariegos and colleagues, with an educational palomo from [employer]. Review of Systems Const All systems reviewed & are unremarkable except as noted in HPI and below Card Denies chest pain at rest, Denies chest pain with activity, Denies edema, Denies irregular heart rhythm, Denies claudication, Denies dyspnea, Denies dyspnea on exertion, Denies orthopnea, Denies paroxysmal nocturnal dyspnea and Denies slow heart rate Resp Denies cough, Denies dyspnea and Denies dyspnea on exertion GI Denies abdominal pain, Denies change in bowel habits, Denies excessive flatus, Denies nausea and Denies vomiting Denies urinary incontinence, Denies urinary hesitancy and Denies urinary urgency Musc Denies atrophy, Denies deformity and Denies limited range of motion Physical exam (Primary Care) Vital Signs: Last Vital Signs Pulse 56 01/18/25 13:04 BP 102/58 L 01/18/25 13:04 Pulse Ox 98 01/18/25 13:04 Oxygen Delivery Method Room Air 01/18/25 13:04 BMI result Body Mass Index 21.0 Tobacco/Smoking Status: Tobacco use Status Tobacco use date assessed 01/18/25 01/18/25 13:08 Patient Tobacco Use Status Never used Tobacco 01/18/25 13:08 Tobacco use type Cigarette 01/18/25 13:08 e-Cigarette/Vaping Use Never Used 01/18/25 13:08 Thrive Assessment: Date of Thrive Assessment Date Thrive assessed 01/18/25 01/18/25 13:08 Currently or been in a relationship where the following occur: I choose not to answer [facility] Head: Yes normal to inspection, Yes normocephalic and Yes atraumatic Ears: external ears normal Eyes General: appearance normal, both eyes and all related structures Eyelids: Yes eyelids normal Conjunctivae: conjunctivae normal Neck Neck: Yes normal visual inspection and Yes supple Resp Effort & Inspection: normal respiratory effort Auscultation: clear to auscultation bilaterally Cardio Jugular venous distension: no JVD Rate: regular rate Rhythm: regular rhythm Heart sounds: S1 normal heart sound present and S2 normal heart sound present GI Inspection: Yes normal to inspection Palpation (GI): Soft to palpation and nontender Auscultation: normal bowel sounds Skin General skin exam: no rashes or lesions noted Neuro General: no focal motor deficits Extrem General: Yes full ROM Psych Appearance: grossly normal Coding Level of Care Code Est Pt Level 3 (48950) Est Pt Prev Care 18-39y(27908) Diagnoses Physical exam Z00.00 Gluten intolerance K90.41 Acne L70.9 Allergic reaction T78.40XA Time Spent (min) 33 Assessment & Plan Assessment & Plan (1) Physical exam: Code(s): Z00.00 - Encounter for general adult medical examination without abnormal findings Category: Medical (2) Gluten intolerance: Code(s): K90.41 - Non-celiac gluten sensitivity Category: Medical (3) Acne: Code(s): L70.9 - Acne, unspecified Category: Medical (4) Allergic reaction: Code(s): T78.40XA - Allergy, unspecified, initial encounter Category: Medical Plan Repeat physical exam in a year. Referred to Dermatology for acne. RAST test ordered. Celiac disease panel ordered. Orders: Orders Rast Allergen Today T78.40XA - Allergy, unspecified, initial encounter Celiac Diagnostic Gliadin TTG Today K90.41 - Non-celiac gluten sensitivity
[2025-01-18 13:04] VITALS: BP 102/58; PULSE 56; O2SAT 98; BMI 21.0
--- OUTSIDE RECORDS SUMMARY | 2025-01-18 14:08 | XMS_ITS ---
Continuity of Care Document (CCD) Created on: January 18, 2025 Ellen Haq External Reference #: [id number] : [id number] Sex: Female Author Organization [facility] Address [address] [place] [address] Phone [phone] Problems Active Problems Provider Date Polycystic ovary syndrome Amador Gregorio M.D. Onset: 10/21/2022 Anxiety disorder Amador Gregorio M.D. Onset: Immunoglobulin A deficiency Randa Hwoard Onset: 10/21/2022 Dai-Danlos syndrome Amador Gregorio M.D. [...]
--- OUTSIDE RECORDS SUMMARY | 2025-01-18 14:08 | XMS_ITS | Encounter Summary ---
Author Organization [facility] Address [address] [place] [address] Phone Care Team Providers Care Bingo Floater Name Role Phone Esther Walker WILLY Primary Care Provider [phone] Tahir Ibarra DO Unavailable Unknown, Unknown Primary Care Provider Gerald de leon Pcp, Unknown Primary Care Provider Unavailloly e Brooklyn Fine MD Primary Care Provid er Encounter Details Date Type Department Care Team (Late st Contact Info) Description 10/07/2022 Procedure Pass [place] Admitting Dept - Virtual Department [address] [place] [address] Social History Tobacco Use Types Packs/Day Years Used Date Smoking Tobacco: Never Smokeless Tobacco: Never Alcohol Use Standard Drinks/Week Comments Not Currently 0 (1 standard drink = 0.6 oz pur e alcohol) Child or Family Care Answer Date Record ed Do you have problems with on e of the following making it difficult for you to work, study, or receive health care? No 09/23/2021 Education Answer Date Recorded Are you interested in help w ith more adult education (for example, completing high school, GED, job training, learning the [place] language, technical skills, or developing parenting skills)? I choose not to answer 09/23/2021 Food Answer Date Recorded Within the past 6 months we worried whether our food would run out before we got money to buy more. I choose not to answer 09/23/2021 Within the past 6 months the food we bought just didn't last and we didn't have enough money to get more. I choose not to answer 09/23/2021 Residential Stability Answer Date Recor ded What is your housing situation today? I have livan lizarraga 09/23/2021 How many times have you moved in the past 12 mon ths? One time 09/23/2021 Paying for Meds Answer Date Recorded Do you have trouble paying for medicines? No 09/23/2021 Paying Utility Bills Answer Date Record ed Do you have trouble paying y our heating or electricity bill? I choose not to answer 09/23/2021 Transportation Answer Date Recorded Has the lack of transportati on kept you from medical appointments or from getting medications? No 09/23/2021 Unemployment Answer Date Recorded Are you currently unemployed or working on a part-time or temporary basis, and looking for work? 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 Non-Specific Active Suici mark Thoughts (Past 1 Month) No 10/07/2022 2:00 AM EDT Lori Marroquin, HARMAN 6. Suicidal Behavior (Lifetime) No 2:00 AM KIMBERLEYT Natalya Marroquin, RN documented as of this encounter Plan of Treatment Not on file documented as of this encounter Visit Diagnoses Not on filedocumented in this encounter Additional Health Concerns Infection Onset Date Last Indicated Resolved Time CoV-Risk 09/18/2023 09/18/2023 09/29/2023 1:22 AM EDT CoV-Risk 11/25/2023 11/25/2023 11/25/2023 10:2 9 PM EDT COVID-19 11/25/2023 11/25/2023 12/16/2023 1:21 AM EDT CoV-Risk 01/26/2024 01/26/2024 02/06/2024 1:22 AM EDT Assessment Noted Time PHQ-2 Depression Total Score: 0 09/24/19 12:03 PM EDT documented as of this encounter Care Teams Bingo Floater Relationship Specialty Start Date End Date Esther Walker Sydni, [employer] [address], [address] [place] [address] [email or web address] PCP - General Family Medicine 10/08/21 10/09/22 Unknown, Gabby, PCP - General 10/10/22 09/17/23 Pcp, Unknown PCP - General 09/18/23 01/05/24 Brooklyn Fine MD [address] [place] [address] PCP - General Internal Medicine 01/06/24 Tahir Ibarra DO [address], [address] [place] [address] [email or web address] Insurance Assigned Provider 09/07/22 01/05/23 documented as of this encounter Additional Source Comments The information contained in this document represents components of the legal health record. It is not the complete legal health record.[facility]
== END 2025-01-18 13:31 | disposition home or self-care (01) ==
LOC: HO.HMCH 13:02
PROVIDERS: PCP Internal Medicine; Visit Provider Internal Medicine
DX: Z00.00 Encounter for general adult medical examination without abnormal findings (principal); K90.41 Non-celiac gluten sensitivity; L70.9 Acne, unspecified; T78.40XA Allergy, unspecified, initial encounter

== ENCOUNTER 2025-01-18 13:00 | Outpatient (REF) | payer OTHER, SELFPAY ==
[2025-01-19 07:18] LABS: Rubeola IgG (Measles) 39.50 AU/mL
[2025-01-19 20:58] LABS: Immunoglobulin A 86 mg/dL (47-310); Transglutaminase Ab IgG <1.0 U/mL
== END 2025-01-18 13:01 | disposition home or self-care (01) ==
LOC: HO.LAB 13:00
PROVIDERS: PCP Internal Medicine; Visit Provider Internal Medicine
DX: Z00.00 Encounter for general adult medical examination without abnormal findings (principal); K90.41 Non-celiac gluten sensitivity; L70.9 Acne, unspecified; Z01.84 Encounter for antibody response examination; Z91.09 Other allergy status, other than to drugs and biological substances
CPT/HCPCS: 36415; 82784; 86003; 86258; 86364; 86735; 86762; 86765; 99212; 99395